=== PATIENT | male | born 1970 | race Two or more races ===

== ENCOUNTER 2020-08-20 17:05 | Outpatient (REF) | payer OTHER, SELFPAY | END 2020-08-20 17:06 | disposition home or self-care (01) | LOC: HO.LAB 17:05 | PROVIDERS: Visit Provider Internal Medicine | DX: Z20.828 Contact with and (suspected) exposure to other viral communicable diseases (principal) | CPT/HCPCS: C9803; U0003 ==

== ENCOUNTER 2020-12-24 10:43 | Emergency (ER) | payer OTHER, SELFPAY ==
--- NOTE | ~2020-12-24 | XR_ITS ---
EXAMINATION: XR ANKLE, LEFT XR ANKLE, RIGHT CLINICAL INFORMATION: Swelling, pain COMPARISON: None TECHNIQUE: 2 views left ankle, 2 views left foot, and mediolateral view of the combined ankle and foot are obtained for a total of 5 views. FINDINGS: There is ankle soft tissue swelling, greater on medial side. No visible fracture or dislocation. The ankle mortise is symmetric. The malleoli appear intact. There is no visible ankle capsular effusion. The subtalar joint is normal. The retrocalcaneal recess is preserved. There are posterior and plantar calcaneal spurs. The midfoot and forefoot show no fracture or dislocation. No erosive changes. No destructive process. XR/XR ankle LT min 3V IMPRESSION: 1. No fracture or dislocation. No destructive process or erosive arthropathy. 2. Posterior and plantar calcaneal spurs.
--- NOTE | ~2020-12-24 | XR_ITS ---
EXAMINATION: XR ANKLE, LEFT XR ANKLE, RIGHT CLINICAL INFORMATION: Swelling, pain COMPARISON: None TECHNIQUE: 2 views left ankle, 2 views left foot, and mediolateral view of the combined ankle and foot are obtained for a total of 5 views. FINDINGS: There is ankle soft tissue swelling, greater on medial side. No visible fracture or dislocation. The ankle mortise is symmetric. The malleoli appear intact. There is no visible ankle capsular effusion. The subtalar joint is normal. The retrocalcaneal recess is preserved. There are posterior and plantar calcaneal spurs. The midfoot and forefoot show no fracture or dislocation. No erosive changes. No destructive process. XR/XR foot LT 2V IMPRESSION: 1. No fracture or dislocation. No destructive process or erosive arthropathy. 2. Posterior and plantar calcaneal spurs.
--- NOTE | ~2020-12-24 | US_ITS ---
EXAMINATION: US VENOUS ULTRASOUND WITH DOPPLER LOWER EXTREMITY, LEFT CLINICAL INFORMATION: Lower extremity swelling. Assess for occult DVT. COMPARISON: Venous ultrasound lower extremities 05/09/2019, right lower extremity venous Doppler 04/08/2017. TECHNIQUE: Ultrasound of the deep veins is performed from the hip to the calf with compression sonography and color and pulse Doppler assessment. Spectral analysis with color-flow imaging is performed. FINDINGS: There is normal venous compression and respiratory variation and augmented flow. The visualized common femoral vein, superficial femoral vein, profunda femoral vein, popliteal vein, and the trifurcation region shows no evidence of deep venous thrombosis. The peroneal vein is only visible with color, otherwise unremarkable. There is no significant popliteal fossa cyst. US/US venous duplex LE LT IMPRESSION: No DVT demonstrated in the left lower extremity. If the patient's symptoms persist, followup ultrasound in 5 days 7 days might be of value to exclude proximal propagation from a non-visualized calf vein.
[2020-12-24 11:14] VITALS: BP 130/62; PULSE 76; RESP 18; TEMP 36.9; O2SAT 98; BMI 34.9
--- NOTE | 2020-12-24 12:09 | ED_ITS ---
HPI - Extremity Problem General Chief complaint: Extremity Problem <KRIS Alvarez Last Filed: 12/24/20 18:08> Stated complaint: L LEG SWELLING <KRIS Alvarez Last Filed: 12/24/20 18:08> Time Seen by Provider: 12/24/20 11:46 <KIRS Alvarez Last Filed: 12/24/20 18:08> Source: patient <KRIS Alvarez Last Filed: 12/24/20 18:08> Mode of arrival: ambulatory <KRIS Alvarez Last Filed: 12/24/20 18:08> Limitations: no limitations <KRIS Alvarez Last Filed: 12/24/20 18:08> History of Present Illness HPI Narrative: Patient presents to ED for left leg swelling for 1 week. Patient is status post JJ vaccine injection. Patient denies any trauma to right lower extremity. Patient denies any chest pain, shortness of breath, or passing out. Patient denies any recent trauma to lower extremity. <KRIS Alvarez Last Filed: 12/24/20 18:08> Related Data Allergies/Adverse reactions: Allergies Allergy/AdvReac Type Severity Reaction Status Date / Time No Known Allergies Allergy Verified 12/24/20 13:23 [No Known Allergies*] <KRIS Alvarez Last Filed: 12/24/20 18:08> Review of Systems Review of Systems: Yes all other systems are reviewed and are negative <KRIS Alvarez Last Filed: 12/24/20 18:08> Constitutional: Constitutional: Reports as per HPI and Reports no additional constitutional complaints <KRIS Alvarez Last Filed: 12/24/20 18:08> Eyes: Eyes: Reports as per HPI and Reports no additional eye complaints <KRIS Alvarez Last Filed: 12/24/20 18:08> ENT: Reports system reviewed and no additional complaints, except as documented and Reports as per HPI <KRIS Alvarez Last Filed: 12/24/20 18:08> Cardiovascular: Cardiovascular: Reports as per HPI and Reports no additional cardiovascular complaints <KRIS Alvarez Last Filed: 12/24/20 18:08> Respiratory: Respiratory: Reports as per HPI and Reports no additional respiratory complaints <KRIS Alvarez - Last Filed: 12/24/20 18:08> Gastrointestinal: Gastrointestinal: Reports as per HPI and Reports no additional gastrointestinal complaints <KRIS Alvarez - Last Filed: 12/24/20 18:08> Genitourinary: Genitourinary: Reports no additional male genitourinary complaints and Reports as per HPI <KRIS Alvarez - Last Filed: 12/24/20 18:08> Musculoskeletal: Musculoskeletal: Reports no additional musculoskeletal complaints and Reports as per HPI <KRIS Alvarez - Last Filed: 12/24/20 18:08> Comments: Lower extremity swelling <KRIS Alvarez - Last Filed: 12/24/20 18:08> Neurologic: Reports system reviewed and no additional complaints, except as documented and Reports as per HPI <KRIS Alvarez - Last Filed: 12/24/20 18:08> Psychiatric: Psychiatric: Reports no additional psychiatric complaints and Reports as per HPI <KRIS Alvarez - Last Filed: 12/24/20 18:08> FOR[facility]LY [facility], [facility] Past Medical History Medical History: Medical History (Updated 12/25/20 @ 00:01 by Gonzalo Puckett) Sleep apnea <KRIS Alvarez - Last Filed: 12/24/20 18:08> Social History Social History: Social History Alcohol intake: never <KRIS Alvarez - Last Filed: 12/24/20 18:08> Physical Exam Vital Signs: Vital Signs: Last Vital Signs Temp 98.5 F 12/24/20 11:14 Pulse 76 12/24/20 11:14 Resp 18 12/24/20 11:14 BP 130/62 12/24/20 11:14 Pulse Ox 98 12/24/20 11:14 Body Mass Index 34.9 <KRIS Alvarez - Last Filed: 12/24/20 18:08> Vital Signs: Last Vital Signs Temp 98.5 F 12/24/20 11:14 Pulse 76 12/24/20 11:14 Resp 18 12/24/20 11:14 BP 130/62 12/24/20 11:14 Pulse Ox 98 12/24/20 11:14 Body Mass Index 34.9 <Lenny Savage MD - Last Filed: 01/01/21 17:05> Const: General: cooperative, healthy appearing, comfortable, no acute distress, well developed, alert and awake; No Physically active <KRIS Alvarez Last Filed: 12/24/20 18:08> Orientation/consciousness: patient oriented x3 <KRIS Alvarez Last Filed: 12/24/20 18:08> HENMT: Head: Yes normal to inspection, Yes No palpable skull fracture present, Yes normocephalic, No atraumatic, No Lara's sign, No contusion, No cranial bruits, No hematoma, No laceration, No occipital foramen tenderness, No palpable skull fracture, No raccoon eyes, No scalp lesion, No scalp tenderness, No Temporal artery tenderness present and No periorbital ecchymosis <KRIS Alvarez Last Filed: 12/24/20 18:08> Eyes: General: appearance normal, both eyes and all related structures <KRIS Alvarez Last Filed: 12/24/20 18:08> Neck: Neck: Yes normal visual inspection, Yes full ROM, Yes no lymphadenopathy, Yes no meningeal signs, Yes trachea midline, Yes supple and No tender <KRIS Alvarez Last Filed: 12/24/20 18:08> Chest: Chest palpation & inspection: normal inspection of the chest and normal palpation of entire chest wall <KRIS Alvarez Last Filed: 12/24/20 18:08> Resp: Effort & Inspection: normal respiratory effort and able to speak in complete sentences <KRIS Alvarez Last Filed: 12/24/20 18:08> Auscultation: clear to auscultation bilaterally <KRIS Alvarez Last Filed: 12/24/20 18:08> Cardio: Jugular venous distension: no JVD <KRIS Alvarez Last Filed: 12/24/20 18:08> Heart sounds: S1 normal heart sound present and S2 normal heart sound present <KRSI Alvarez Last Filed: 12/24/20 18:08> GI: Inspection: Yes normal to inspection and No abdominal wall ecchymosis <KIRS Alvarez Last Filed: 12/24/20 18:08> Palpation (GI): Soft to palpation, not firm, nontender, no guarding and not r igid <KRIS Alvarez - Last Filed: 12/24/20 18:08> : General: No CVA tenderness and Yes no CVA tenderness <KRIS Alvarez Last Filed: 12/24/20 18:08> Back/Spine/Pelvis: Back: no CVA tenderness, No CVA tenderness and No back tenderness <KRIS Alvarez - Last Filed: 12/24/20 18:08> Skin: General skin exam: no rashes or lesions noted and elasticity normal <KRIS Alvarez - Last Filed: 12/24/20 18:08> Neuro: General: patient oriented x3, no meningeal signs and CN's II-XI intact bilaterally <KRIS Alvarez Last Filed: 12/24/20 18:08> Cranial nerves: Yes CN's II-XII intact bilaterally <KRIS Alvarez - Last Filed: 12/24/20 18:08> Extrem: Other: Left lower extremity: Positive for lower leg/ankle/foot swelling. Negative for any redness, or calf tenderness. Negative for ecchymosis. Negative for any tenderness. Pulses intact. Motor/neuro exam intact. Right lower extremity: Normal. Motor/neuro/vascular exam intact <KRIS Alvarez - Last Filed: 12/24/20 18:08> General: Yes normal to inspection and Yes full ROM <KRIS Alvarez - Last Filed: 12/24/20 18:08> Psych: Appearance: grossly normal, well kempt and not disheveled <KRIS Alvarez - Last Filed: 12/24/20 18:08> Course Course Course Narrative: Patient will be sent for ultrasound to rule out blood clot due to recent GJ vaccine. <KRIS Alvarez - Last Filed: 12/24/20 18:08> I have reviewed the chart <Lenny Savage MD - Last Filed: 01/01/21 17:05> Reevaluation(s) Reevaluation #1: Lower extremity x-ray negative for any fractures. Lower extremity ultrasound negative for blood clot. Patient informed to follow-up with PCP. <KRIS Alvarez - Last Filed: 12/24/20 18:08> MDM - Extremity (Nontraumatic) MDM Narrative Medical decision making narrative: Lower extremity swelling. <KRIS Alvarez Last Filed: 12/24/20 18:08> Discharge Plan Discharge Clinical Impression: Lower extremity edema <KRIS Alvarez Last Filed: 12/24/20 18:08> Patient Disposition: Home, Self-Care <KRIS Alvarez Last Filed: 12/24/20 18:08> Instructions: Leg Edema (ED) <KRIS Alvarez Last Filed: 12/24/20 18:08> Additional Instructions: Regrese al servicio de urgencias por cualquier enrojecimiento de las extremidades inferiores, aumento de la hinchaz?n, dolor en la pantorrilla, dolor en el pecho, dificultad para respirar, decoloraci?n azulada de las extremidades, frialdad de las extremidades, fiebre, escalofr?os o cualquier otro s?ntoma preocupante. La ecograf?a de joseph extremidad inferior result? negativa para TVP. Las radiograf?as dieron negativo por fractura. Nataliya un seguimiento con joseph PCP <KRIS Alvarez - Last Filed: 12/24/20 18:08> Interventions: ED Discharge Assessment Last Done: 12/24/20 13:58 <KRIS Alvarez Last Filed: 12/24/20 18:08> Discharge Date/Time: 12/24/20 13:59 <KRIS Alvarez - Last Filed: 12/24/20 18:08> Print Language: Kazakh <KRIS Alvarez Last Filed: 12/24/20 18:08>
== END 2020-12-24 13:59 | disposition home or self-care (01) ==
PROVIDERS: Emergency Provider Emergency Medicine
DX: R60.0 Localized edema (principal)
CPT/HCPCS: 73610; 73620; 93971; 99284

== ENCOUNTER 2020-12-30 11:57 | Outpatient (REF) | payer OTHER, SELFPAY ==
[2020-12-30 13:08] LABS: COVID-19 Test Negative (Negative); IDNOW Serial# 55D5AD1C
== END 2020-12-30 11:58 | disposition home or self-care (01) ==
LOC: HO.LAB 11:57
PROVIDERS: Visit Provider Internal Medicine
DX: Z20.822 Contact with and (suspected) exposure to COVID-19 (principal)
CPT/HCPCS: 36415; 87635; C9803

== ENCOUNTER 2021-09-01 11:23 | Outpatient (REF) | payer OTHER, SELFPAY | END 2021-09-01 11:24 | disposition home or self-care (01) | LOC: HO.LAB 11:23 | PROVIDERS: Visit Provider Internal Medicine | DX: Z20.822 Contact with and (suspected) exposure to COVID-19 (principal) | CPT/HCPCS: C9803; U0003; U0005 ==

== ENCOUNTER 2021-10-28 08:38 | Day surgery (SDC) | payer OTHER, SELFPAY ==
--- NOTE | 2021-10-24 13:04 | HO.ANESPROP2 ---
Documented by User: Patience Andujar NP 10/24/21 13:05 HPI - Anesthesia Eval Consult details Narrative: 51yo M for Colonoscopy [facility] Past Medical History Medical History JULIO on CPAP Surgical History Surgical History History of circumcision Social History Social History Alcohol intake: never Advance Directives: No Advance Directives Information Provided: No Meds Allergies Allergy/AdvReac Type Severity Reaction Status Date / Time No Known Allergies Allergy Verified 10/20/21 15:27 [No Known Allergies*] Exam Exam Date and Time: October 24, 2021 1304 Assessment and Plan Assessment Anesthesia Assessment: Chart Reviewed Documented by User: Shari Castanon MD 10/28/21 08:56 [facility] Past Medical History Medical History JULIO on CPAP Functional capacity: independent ambulation Family History Family history of problems with anesthesia: No Surgical History Surgical History History of circumcision History of Problems with Anesthesia: No Social History Social History Alcohol intake: never Advance Directives: No Advance Directives Information Provided: No Meds Allergies Allergy/AdvReac Type Severity Reaction Status Date / Time No Known Allergies Allergy Verified 10/20/21 15:27 [No Known Allergies*] Exam Airway Mallampati Class: II TM Dist: >3cm Neck ROM: Full Heart: RRR Lungs: CTA Assessment and Plan Final Anesthetic Review Family History of Problems with Anesthesia: No History of Problems with Anesthesia: No Final Preanesthetic Review: No Changes in Pt Med Stat, Meds/Allgs Chart Reviewed, Consent Obtained/Reviewed and Anes Risks/Benef Reviewed Patient Risk: Low Procedure Risk: Low Anesthetic Plan Anesthetic Plan: MAC: Disposition: Standard PACU
[2021-10-28 08:57] VITALS: BMI 35.7
[2021-10-28 09:04] VITALS: BP 136/74; PULSE 85; RESP 16; TEMP 36.6; O2SAT 97
[2021-10-28] MEDS: Lactated Ringers 1,000 ML 100 ML IVCONT (09:16)
--- NOTE | 2021-10-28 09:45 | MHC.SHP ---
Pre-Procedural Eval Section A Date of Service: 10/28/21 The patient is an INPATIENT: No Changes since office visit: No Cold of Flu in the past 2 weeks, No New Medical Problems, No Changes in Medication and No Patient answered all questions The History & Physical has been completed within 30 days and I have reviewed it.: Yes Section B Chief Complaint: screening Allergies: Allergies Allergy/AdvReac Type Severity Reaction Status Date / Time No Known Allergies Allergy Verified 10/20/21 15:27 [No Known Allergies*] Plan I have reviewed the history and physical and performed a pertinent physical examination on my patient. No changes have occurred unless specified.
--- NOTE | 2021-10-28 10:08 | PM.OP ---
Brief Operative Note Date of Service: 10/28/21 Pre-op diagnosis: screening Post-op diagnosis: same (normal) Procedure: colonoscopy Surgeon: Marquise Kaufman Anesthesia: MAC Was an Supervisor Show Operations used for this Procedure?: No Estimated blood loss (mL): 0 Pathology: none sent Condition: stable Disposition: PACU
[2021-10-28 10:12] VITALS: BP 104/58; PULSE 91; RESP 16; TEMP 37; O2SAT 96
[2021-10-28 10:27] VITALS: BP 120/77; PULSE 79; RESP 16; TEMP 37; O2SAT 97
--- NOTE | 2021-10-28 11:19 | OP_ITS ---
SURGEON: Marquise Kaufman MD INDICATIONS: Colon cancer screening. PREOPERATIVE DIAGNOSIS: POSTOPERATIVE DIAGNOSIS: PROCEDURE PERFORMED: Colonoscopy to the terminal ileum. ESTIMATED BLOOD LOSS: COMPLICATIONS: ANESTHESIA: Monitored anesthesia care. ASSISTANTS: SPECIMENS: DESCRIPTION OF PROCEDURE: History and physical were performed. The risks and benefits of the procedure were explained to the patient. Informed consent was obtained. The patient was placed in the left lateral decubitus position. A digital rectal exam was performed and was found to be normal. The Olympus pediatric video colonoscope was introduced into the rectum and advanced to the cecum without difficulty. The cecum was identified by transillumination, palpation, and identification of the ileocecal valve. Examination was performed. The scope was removed. He tolerated the procedure well and was returned to the recovery area in stable condition. FINDINGS: The terminal ileum was normal. The visualized colonic mucosa was within normal limits without evidence of masses or ulcers. The quality of the prep was good. No polyps were identified. There were small internal hemorrhoids on retroflexed examination. IMPRESSION: Normal colonoscopy. RECOMMENDATION: 1. Follow up as needed. 2. Repeat colonoscopy is recommended in 10 years for average risk individuals. MD RICHARD Umaña/KAYE / [id number]
--- NOTE | 2021-10-28 14:04 | HO.POSTANES ---
Post Anesthesia Evaluation Post Anesthesia Evaluation Vital Signs: Vital Signs Temp Pulse Resp BP Pulse Ox 10/28/21 10:27 98.6 F 79 16 120/77 97 10/28/21 10:12 98.6 F 91 16 104/58 L 96 10/28/21 09:04 97.8 F 85 16 136/74 97 Anesthesia: Monitored Mental Status: Awake Pain Control: Satisfactory Nausea/Vomiting: None Hydration: Adequate Anesthesia-Related Issues: No Anes. Related Issues
== END 2021-10-28 11:04 | disposition home or self-care (01) ==
PROVIDERS: Visit Provider Internal Medicine Gastroenterology
PROC: 0DJD8ZZ Inspection of Lower Intestinal Tract, Via Natural or Artificial Opening Endoscopic (ICD-10-PCS; CPT 45378; principal; 2021-10-28 10:00)
DX: Z12.11 Encounter for screening for malignant neoplasm of colon (principal); G47.33 Obstructive sleep apnea (adult) (pediatric); Z99.89 Dependence on other enabling machines and devices
CPT/HCPCS: 45378

== ENCOUNTER 2022-01-13 15:11 | Inpatient (IN) | payer OTHER, SELFPAY ==
[2022-01-13] VITALS (7 sets, daily range): BP systolic 109–122; BP diastolic 54–68; PULSE 73–120; RESP 16–22; TEMP 36.7–38.6; O2SAT 97–99; BMI 35.7
--- NOTE | 2022-01-13 | ECG_ITS ---
Test Reason : TACHY/INFECTION? Blood Pressure : / mmHG Vent. Rate : 110 BPM Atrial Rate : 110 BPM P-R Int : 146 ms QRS Dur : 098 ms QT Int : 328 ms P-R-T Axes : 054 -40 028 degrees QTc Int : 443 ms Sinus tachycardia Left axis deviation Incomplete right bundle branch block Abnormal ECG No previous ECGs available Referred By: Generic ED Physician Electronically Signed By:PETRA SCHMIDT MD
--- NOTE | ~2022-01-13 | US_ITS ---
EXAMINATION: US VENOUS ULTRASOUND WITH DOPPLER LOWER EXTREMITY, LEFT CLINICAL INFORMATION: Left leg cellulitis, rule out DVT. COMPARISON: None TECHNIQUE: Ultrasound of the deep veins is performed from the hip to the calf with compression sonography and color and pulse Doppler assessment. Spectral analysis with color-flow imaging is performed. FINDINGS: There is normal venous compression and respiratory variation and augmented flow. The visualized common femoral vein, superficial femoral vein, profunda femoral vein, popliteal vein, and the trifurcation region shows no evidence of deep venous thrombosis. No left popliteal cyst. Enlarged left inguinal lymph node measuring 4.3 cm in long axis with thin cortex. If the patient's symptoms persist, followup ultrasound in 5 days 7 days might be of value to exclude proximal propagation from a non-visualized calf vein. US/US venous duplex LE IMPRESSION: 1. No evidence for deep venous thrombosis in the left lower extremity. 2. Enlarged left inguinal lymph node is nonspecific, but does not appear pathologic and could be reactive, possibly chronic.
--- NOTE | ~2022-01-13 | US_ITS ---
EXAMINATION: US ABDOMEN LIMITED CLINICAL INFORMATION: Transaminitis. COMPARISON: Ultrasound abdomen complete 04/08/2017. TECHNIQUE: Real-time imaging of the right upper quadrant abdominal viscera. FINDINGS: PANCREAS: Normal. No mass or abnormal inflammatory change. LIVER: Normal. The liver is normal in size. The liver contour is normal. Parenchymal echogenicity is normal. No focal hepatic lesion. There is no intrahepatic biliary duct dilatation seen. GALLBLADDER: Normal. The gallbladder is physiologically distended without evidence of stones, sludge, polyps, wall thickening or pericholecystic fluid. COMMON BILE DUCT: Normal in caliber measuring 0.3 cm in diameter. RIGHT KIDNEY: There is mild rotation present with extrarenal pelvis. No hydronephrosis. No renal calculi or focal parenchymal lesions. The kidney measures 13.7 cm in maximum dimension. FREE FLUID: None. US/US abdomen limited IMPRESSION: No significant abnormality identified.
--- NOTE | ~2022-01-13 | XR_ITS ---
EXAMINATION: XR TIBIA AND FIBULA, LEFT CLINICAL INFORMATION: Left leg cellulitis, rule out subcutaneous air. COMPARISON: None TECHNIQUE: AP and lateral views of the left tibia and fibula were obtained. FINDINGS: Mild soft tissue swelling is seen without subcutaneous air. The tibia and fibula are intact. The joint spaces are unremarkable. XR/XR tibia fibula LT 2V IMPRESSION: Mild soft tissue swelling without subcutaneous air or overt osseous abnormality. .
--- NOTE | 2022-01-13 15:20 | PC.NURSE ---
Triage complete- charge account authorizer and md notified of possible sepsis.
[2022-01-13] MEDS: Acetaminophen 325 MG TABLET 650 MG PO (15:27)
[2022-01-13 15:53] LABS: MANUAL DIFF FLAG NO
[2022-01-13 15:58] LABS: Basophils Percent Auto 0.2 % (0-2); Hematocrit 39.8 % (42.0-52.0); Imm Gran Abs Auto 0.09 X10*3/uL (0.00-0.03); Imm Gran Pct Auto 0.6 % (0.0-0.4); Lymphocytes Absolute Auto 0.8 X10*3/uL (1.2-4.9); Lymphocytes Percent Auto 5.2 % (20-40); Mean Corpuscular HGB Conc 32.7 g/dl (31.0-36.0); Mean Corpuscular Volume 82.6 fL (80.0-98.0); Monocytes Absolute Auto 0.8 X10*3/uL (0.1-1.2); Monocytes Percent Auto 4.9 % (2-11); Neutrophils Absolute Auto 14.3 x10*3/uL (2.0-8.3); Neutrophils Percent Auto 89.1 % (45-73); Platelet Count 200 X10*3/uL (160-400); Red Blood Count 4.82 X10*6/uL (4.60-5.80); Red Cell Distribution Width 14.1 % (11.0-16.0); White Blood Count 16.1 X10*3/uL (4.8-10.8)
[2022-01-13 16:01] LABS: Appearance Urine CLEAR; Color Urine DK YELLOW; Glucose Urine UA NEG (NEG); Leukocyte Esterase Urine NEG (NEG); Nitrite Urine NEG (NEG); PH 5.5 (5.0-8.0); Specific Gravity - Urine 1.025 (1.005-1.025); UACC Culture Trigger NO; Urine Blood 2+ (NEG); Urine Ketones 15 MG/DL (NEG); Urine Protein TRACE MG/DL (NEG-TRACE)
[2022-01-13 16:10] LABS: Alanine Aminotransferase 86 U/L (0-40); Albumin Level 3.9 g/dL (3.5-5.0); Alkaline Phosphatase 96 U/L (39-117); Anion Gap 13 (12-20); Aspartate Amino Transferase 65 U/L (5-37); Bilirubin Direct 0.6 mg/dL (0.0-0.5); Blood Urea Nitrogen 17 mg/dL (9-16); Calcium 8.6 mg/dL (8.4-10.2); Carbon Dioxide 21 mmol/L (22-29); Chloride 105 mmol/L (96-108); Creatinine Clr Calc Pharmacy 89.3; Estimated Glomerular Filt Rate > 60; Glucose Random 170 mg/dL (60-115); Lipase 10 U/L (8-78); Potassium 3.5 mmol/L (3.3-5.1); Sodium 135 mmol/L (135-145); Total Protein 6.9 g/dL (6.5-8.0)
--- NOTE | 2022-01-13 16:21 | ED.SKABFB ---
HPI - Skin/Abscess/Foreign Bdy General Chief complaint: Skin/Abscess/Foreign Body Stated complaint: L leg swollen/fever Time Seen by Provider: 01/13/22 16:18 Source: patient Mode of arrival: ambulatory Limitations: no limitations History of Present Illness HPI narrative: 51-year-old male came in for evaluation of left lower extremities swelling and redness and fever since yesterday. Patient reported fever since last night, left lower extremity swelling tenderness and redness, declined any trauma, no history of insect bite, patient had similar history in the right leg x3. No history of DVT, no history of recent travel or prolonged immobilization. Related Data Allergies Allergy/AdvReac Type Severity Reaction Status Date / Time No Known Allergies Allergy Verified 10/20/21 15:27 [No Known Allergies*] Review of Systems Review of Systems: All other systems are reviewed and are negative Constitutional: Reports as per HPI and Reports no additional constitutional complaints Eyes: Reports as per HPI and Reports no additional eye complaints Reports system reviewed and no additional complaints, except as documented Cardiovascular: Reports as per HPI and Reports no additional cardiovascular complaints Respiratory: Reports as per HPI and Reports no additional respiratory complaints Gastrointestinal: Reports as per HPI and Reports no additional gastrointestinal complaints Genitourinary: Reports no additional female genitourinary complaints Musculoskeletal: Reports no additional musculoskeletal complaints Skin/Breast: Reports system reviewed and no additional complaints, except as docu Psychiatric: Reports no additional psychiatric complaints Endocrine: Reports no additional endocrine complaints Hematologic/Lymphatic: Reports no additional hematologic/lymphatic complaints Allergic/Immunologic: Reports no additional allergic/immunologic complaints Reports system reviewed and no additional complaints, except as documented and Reports Abnormal speech present [facility] Past Medical History Medical History JULIO on CPAP Surgical History History of circumcision Social History Social History Alcohol intake: never Patient Tobacco Use Status: Never used Tobacco Advance Directives: No Advance Directives Information Provided: No Physical Exam Vital Signs: Vital Signs: Last Vital Signs Temp 99.0 F 01/13/22 16:39 Pulse 83 01/13/22 17:52 Resp 18 01/13/22 17:52 BP 109/57 L 01/13/22 17:52 Pulse Ox 99 01/13/22 17:52 BMI result Body Mass Index 35.7 Vital signs have been reviewed as appeared to be correct. Blood pressure normal. Heart rate elevated. Respiration rate normal. Temperature elevated. Oxygen saturation normal. Appearance: Alert. Oriented X3. No acute distress. Head: Normal external exam. Normocephalic. Atraumatic. No Lara signs noted. No raccoon eyes noted Eyes: PERRLA. EOMI. Conjunctiva and sclera normal. Eyelids normal. ENT: TM's Normal. Pharynx normal. Uvula midline. Moist mucous membranes. No trismus noted. No drooling noted. No muffled voice noted. Neck: Normal inspection. Neck supple. FROM. No adenopathy. Thyroid Normal. No meningeal signs. No neck mass noted. CVS: Normal heart rate and rhythm. Heart sound normal. No murmurs noted. Pulses normal throughout. Respiratory: No respiratory distress. Painless inspiration. Breath sounds normal. No wheezes/rales/rhonchi noted. Chest nontender. No accessory muscle usage noted or decreased air movement noted. Abdomen: Soft and nontender. Bowel sounds normal in all 4 quadrants. No distention noted. No organomegaly noted. No visible injury noted. Back: No CVA tenderness. Full range of motion noted. Skin: Skin warm and dry. Normal skin color. Normal skin turgor. No rashes/lesions/lacerations noted. Extremities: Left lower extremity with redness, hotness, tenderness. Neurovascular intact with good sensory and motor exam was intact left PT/DP/popliteal pulsation. Neuro: Oriented X 3. Cranial nerve exam: II-XII are grossly intact No motor deficit. No sensory deficit. Reflexes normal. Course Course Course Narrative: Assessment and plan. 51-year-old male with left leg cellulitis patient meet criteria for SIRS but no severe sepsis or septic shock, no DVT, no free SQ air to indicate an anaerobic infection. Will admit the patient for IV fluids/antibiotic. MDM - Skin/Abscess/Foreign Bdy Medical Records Attestation: I reviewed the patient's medical records. Lab Data Attestation: I reviewed the patient's lab results. Result diagrams: 01/13/22 15:46 01/13/22 15:46 Labs: Lab Results 05/06/2701/13/22 01/13/22 Range/Units 15:46 15:46 15:46 WBC 16.1 H (4.8-10.8) X10*3/uL RBC 4.82 (4.60-5.80) X10*6/uL Hgb 13.0 L (14.0-18.0) g/dl Hct 39.8 L (42.0-52.0) % MCV 82.6 (80.0-98.0) fL MCH 27.0 (27.0-33.0) pg MCHC 32.7 (31.0-36.0) g/dl RDW 14.1 (11.0-16.0) % Plt Count 200 (160-400) X10*3/uL MPV 11.0 (9.4-12.4) fL Immature Gran % (Auto) 0.6 H (0.0-0.4) % Neut % (Auto) 89.1 H (45-73) % Lymph % (Auto) 5.2 L (20-40) % [place] % (Auto) 4.9 (2-11) % Eos % (Auto) 0.0 (0-4) % Baso % (Auto) 0.2 (0-2) % Lymph # (Auto) 0.8 L (1.2-4.9) X10*3/uL [place] # (Auto) 0.8 (0.1-1.2) X10*3/uL Eos # (Auto) 0.0 (0.0-0.4) X10*3/uL Baso # (Auto) 0.0 (0.0-0.2) X10*3/uL Abs Immat Gran (auto) 0.09 H (0.00-0.03) X10*3/uL Absolute Neuts (auto) 14.3 H (2.0-8.3) x10*3/uL Absolute Nucleated RBC 0.000 (0.0-0.012) X10*3/uL Nucleated RBC % (auto) 0.0 (0.0-0.2) /100WBC Sodium 135 (135-145) mmol/L Potassium 3.5 (3.3-5.1) mmol/L Chloride 105 (96-108) mmol/L Carbon Dioxide 21 L (22-29) mmol/L Anion Gap 13 (12-20) BUN 17 H (9-16) mg/dL Creatinine 1.17 (0.5-1.4) mg/dL Estim Creat Clear Calc 89.3 Estimated GFR > 60 Random Glucose 170 H (60-115) mg/dL Lactic Acid (0.5-2.0) mmol/L Calcium 8.6 (8.4-10.2) mg/dL Total Bilirubin 1.0 (0.0-1.0) mg/dL Direct Bilirubin 0.6 H (0.0-0.5) mg/dL AST 65 H (5-37) U/L ALT 86 H (0-40) U/L Alkaline Phosphatase 96 (39-117) U/L Total Protein 6.9 (6.5-8.0) g/dL Albumin 3.9 (3.5-5.0) g/dL Lipase 10 (8-78) U/L Urine Color DK YELLOW Urine Appearance CLEAR Urine pH 5.5 (5.0-8.0) Ur Specific [place] 1.025 (1.005-1.025) Urine Protein TRACE (NEG-TRACE) MG/DL Urine Glucose (UA) NEG (NEG) MG/DL Urine Ketones 15 (NEG) MG/DL Urine Blood 2+ H (NEG) Urine Nitrite NEG (NEG) Ur Leukocyte Esterase NEG (NEG) Urine RBC 5-9 H (0) /HPF Urine WBC 0 (0-4) /HPF Ur Squamous Epith Cells TRACE /LPF Urine Bacteria NONE /LPF Urine Mucus TRACE /LPF 01/13/22 Range/Units 18:00 WBC (4.8-10.8) X10*3/uL RBC (4.60-5.80) X10*6/uL Hgb (14.0-18.0) g/dl Hct (42.0-52.0) % MCV (80.0-98.0) fL MCH (27.0-33.0) pg MCHC (31.0-36.0) g/dl RDW (11.0-16.0) % Plt Count (160-400) X10*3/uL MPV (9.4-12.4) fL Immature Gran % (Auto) (0.0-0.4) % Neut % (Auto) (45-73) % Lymph % (Auto) (20-40) % [place] % (Auto) (2-11) % Eos % (Auto) (0-4) % Baso % (Auto) (0-2) % Lymph # (Auto) (1.2-4.9) X10*3/uL [place] # (Auto) (0.1-1.2) X10*3/uL Eos # (Auto) (0.0-0.4) X10*3/uL Baso # (Auto) (0.0-0.2) X10*3/uL Abs Immat Gran (auto) (0.00-0.03) X10*3/uL Absolute Neuts (auto) (2.0-8.3) x10*3/uL Absolute Nucleated RBC (0.0-0.012) X10*3/uL Nucleated RBC % (auto) (0.0-0.2) /100WBC Sodium (135-145) mmol/L Potassium (3.3-5.1) mmol/L Chloride (96-108) mmol/L Carbon Dioxide (22-29) mmol/L Anion Gap (12-20) BUN (9-16) mg/dL Creatinine (0.5-1.4) mg/dL Estim Creat Clear Calc Estimated GFR Random Glucose (60-115) mg/dL Lactic Acid 1.0 (0.5-2.0) mmol/L Calcium (8.4-10.2) mg/dL Total Bilirubin (0.0-1.0) mg/dL Direct Bilirubin (0.0-0.5) mg/dL AST (5-37) U/L ALT (0-40) U/L Alkaline Phosphatase (39-117) U/L Total Protein (6.5-8.0) g/dL Albumin (3.5-5.0) g/dL Lipase (8-78) U/L Urine Color Urine Appearance Urine pH (5.0-8.0) Ur Specific [place] (1.005-1.025) Urine Protein (NEG-TRACE) MG/DL Urine Glucose (UA) (NEG) MG/DL Urine Ketones (NEG) MG/DL Urine Blood (NEG) Urine Nitrite (NEG) Ur Leukocyte Esterase (NEG) Urine RBC (0) /HPF Urine WBC (0-4) /HPF Ur Squamous Epith Cells /LPF Urine Bacteria /LPF Urine Mucus /LPF Imaging Data Left leg x-ray: Attestation: I personally reviewed and interpreted this imaging study as follows: Radiologist's impression: Mild soft tissue swelling without subcutaneous air or overt osseous abnormality. Left leg venous ultrasound: Attestation: I personally reviewed and interpreted this imaging study as follows: Radiologist's impression: 1. No evidence for deep venous thrombosis in the left lower extremity. 2. Enlarged left inguinal lymph node is nonspecific, but does not appear pathologic and could be reactive, possibly chronic. Discharge Plan Discharge Clinical Impression: Cellulitis of left leg Patient Disposition: Admitted As Inpatient
[2022-01-13 16:28] LABS: Mucus Urine TRACE /LPF; Squamous Epithelial Cell Urine TRACE /LPF; WBC Urine 0 /HPF (0-4)
[2022-01-13] MEDS: Piperacillin Sodium/Tazobactam 3.375 GM in 0.9 % Sodium Chloride 50 ML IV (16:35)
[2022-01-13] MEDS: 0.9 % Sodium Chloride 2,052 ML 2052 ML IV (16:35)
[2022-01-13] MEDS: vancomycin HCL 1,250 MG in 0.9 % Sodium Chloride 250 ML 166.67 MG IV (17:38)
--- NOTE | 2022-01-13 18:58 | PHA.MEDREC ---
Pharmacy Consult ? Medication Reconciliation Pharmacy has completed the medication reconciliation. No known home medications
[2022-01-13 19:39] LABS: COVID-19 Test Negative (Negative)
--- NOTE | 2022-01-13 23:44 | PM.IMHP ---
History of Present Illness Date of Service: 01/13/22 Chief Complaint: Left leg pain redness and swelling 51-year-old male with a past medical history of obesity, prior history of cellulitis of the right lower extremity; presented to the hospital today with a chief complaint of left leg pain redness and swelling. Patient reports that he had fever yesterday and today he noted to have pain redness and swelling developed in the left leg; given above symptoms presented to the ER for further evaluation. Denies any trauma or injury. Denies any scratching of the leg. Denies any cough or sputum production. Denies any GI symptoms. Denies any chest pain palpitations lightheadedness or dizziness. Review of all other systems is negative except mentioned above ER course: Per ER team patient noted to have mild leukocytosis; left leg findings concerning for cellulitis; venous duplex was negative. Given IV vancomycin and Zosyn. Admitted to the hospital for further management. [facility] Medical History JULIO on CPAP Pertinent family history: Mother has diabetes. Father has high blood pressure Surgical History History of circumcision Social History Alcohol intake: never Patient Tobacco Use Status: Never used Tobacco Advance Directives: No Advance Directives Information Provided: No Meds Allergies Allergy/AdvReac Type Severity Reaction Status Date / Time No Known Allergies Allergy Verified 10/20/21 15:27 [No Known Allergies*] Active Medications: Current Medications Pharmacy Consult (Consult Rx Perform Med Rec) 1 each MISCELLANE ONCE PRN PRN Reason: Consult order Home Medications Medication Instructions Recorded Confirmed Last Taken Type No Known Home Meds 01/13/22 01/13/22 Unknown History Physical Exam Vital Signs and Narrative: Vital Signs: Last Vital Signs Temp 98.3 F 01/13/22 22:42 Pulse 73 01/13/22 22:42 Resp 18 01/13/22 22:42 BP 122/63 01/13/22 22:42 Pulse Ox 97 01/13/22 22:42 BMI result Body Mass Index 35.7 Gen: Appears be in no acute distress HEENT: NCAT, Moist mucosa. Pulmonary: Vesicular breath sounds, fair air entry CVS: Normal S1-S2 Abdomen: BS+, Soft, Nontender Extremities: Warm well perfused; noted to have left leg pain tenderness and erythema; circumferential; Neuro: Alert and awake. Results Labs CBC and Chem 7: 01/13/22 15:46 01/13/22 15:46 Labs: Laboratory Results - last 24 hr 01/13/22 01/13/22 01/13/22 15:46 15:46 15:46 MCV 82.6 MCH 27.0 MCHC 32.7 RDW 14.1 Plt Count 200 MPV 11.0 Immature Gran % (Auto) 0.6 H Neut % (Auto) 89.1 H Lymph % (Auto) 5.2 L [place] % (Auto) 4.9 Eos % (Auto) 0.0 Baso % (Auto) 0.2 Lymph # (Auto) 0.8 L [place] # (Auto) 0.8 Eos # (Auto) 0.0 Baso # (Auto) 0.0 Abs Immat Gran (auto) 0.09 H Absolute Neuts (auto) 14.3 H Absolute Nucleated RBC 0.000 Nucleated RBC % (auto) 0.0 Anion Gap 13 Estim Creat Clear Calc 89.3 Estimated GFR > 60 Random Glucose 170 H Lactic Acid Calcium 8.6 Total Bilirubin 1.0 Direct Bilirubin 0.6 H AST 65 H ALT 86 H Alkaline Phosphatase 96 Total Protein 6.9 Albumin 3.9 Lipase 10 Urine Color DK YELLOW Urine Appearance CLEAR Urine pH 5.5 Ur Specific [place] 1.025 Urine Protein TRACE Urine Glucose (UA) NEG Urine Ketones 15 Urine Blood 2+ H Urine Nitrite NEG Ur Leukocyte Esterase NEG Urine RBC 5-9 H Urine WBC 0 Ur Squamous Epith Cells TRACE Urine Bacteria NONE Urine Mucus TRACE COVID-19 (JONATHAN) COVID-19 Clin Com 01/13/22 01/13/22 18:00 19:14 MCV MCH MCHC RDW Plt Count MPV Immature Gran % (Auto) Neut % (Auto) Lymph % (Auto) [place] % (Auto) Eos % (Auto) Baso % (Auto) Lymph # (Auto) [place] # (Auto) Eos # (Auto) Baso # (Auto) Abs Immat Gran (auto) Absolute Neuts (auto) Absolute Nucleated RBC Nucleated RBC % (auto) Anion Gap Estim Creat Clear Calc Estimated GFR Random Glucose Lactic Acid 1.0 Calcium Total Bilirubin Direct Bilirubin AST ALT Alkaline Phosphatase Total Protein Albumin Lipase Urine Color Urine Appearance Urine pH Ur Specific [place] Urine Protein Urine Glucose (UA) Urine Ketones Urine Blood Urine Nitrite Ur Leukocyte Esterase Urine RBC Urine WBC Ur Squamous Epith Cells Urine Bacteria Urine Mucus COVID-19 (JONATHAN) Negative COVID-19 Clin Com See Note Imaging Radiologist's Impressions: Impressions Venous Duplex 01/13/22 16:47 IMPRESSION: 1. No evidence for deep venous thrombosis in the left lower extremity. 2. Enlarged left inguinal lymph node is nonspecific, but does not appear pathologic and could be reactive, possibly chronic. Tibia/Fibula X-Ray 01/13/22 17:04 IMPRESSION: Mild soft tissue swelling without subcutaneous air or overt osseous abnormality. . Assessment and Plan (1) Cellulitis of left leg: Status: Acute Plan 51-year-old male with a past medical history of obesity, prior history of cellulitis presented to the hospital with a chief complaint of left leg pain redness and swelling. Noted to have cellulitis. Admitted for further management. Left leg cellulitis: No evidence of open wound or discharge noted. No fluctuance. Venous duplex negative for DVT Continue IV vancomycin and Zosyn Mild transaminitis: Unclear etiology. Will obtain acute hepatitis panel and right upper quadrant ultrasound. Trend liver enzymes. DVT prophylaxis: Lovenox Code status: Full code Quality Stroke Does the patient have a stroke diagnosis?: No VTE Prior VTE?: No VTE Risk Level:: Medical - moderate - high VTE Device Contraindication: Treatment Not Indicated VTE Drug Contraindication: N/A - Med Ordered
[2022-01-14] VITALS (8 sets, daily range): BP systolic 118–140; BP diastolic 54–77; PULSE 83–99; RESP 14–20; TEMP 36.4–38.1; O2SAT 96–99; BMI 35.6
[2022-01-14] MEDS: Enoxaparin Sodium 40 MG/0.4 ML SYRINGE SUBCUT ×2 (01:02→23:26)
[2022-01-14] MEDS: Piperacillin Sodium/Tazobactam 3.375 GM in 0.9 % Sodium Chloride 50 ML IV ×2 (01:03→06:18)
[2022-01-14] MEDS: 0.9 % Sodium Chloride 1,000 ML 75 ML IVCONT (01:04)
[2022-01-14] MEDS: vancomycin HCL 1,250 MG in 0.9 % Sodium Chloride 250 ML 166.67 MG IV (06:50)
[2022-01-14 07:23] LABS: MANUAL DIFF FLAG NO
[2022-01-14] MEDS: Acetaminophen 325 MG TABLET 650 MG PO (07:24)
[2022-01-14 07:28] LABS: Basophils Absolute Auto 0.1 X10*3/uL (0.0-0.2); Basophils Percent Auto 0.4 % (0-2); Eosinophils Percent Auto 0.3 % (0-4); Hematocrit 42.9 % (42.0-52.0); Hemoglobin 13.7 g/dl (14.0-18.0); Imm Gran Abs Auto 0.05 X10*3/uL (0.00-0.03); Imm Gran Pct Auto 0.4 % (0.0-0.4); Lymphocytes Absolute Auto 1.3 X10*3/uL (1.2-4.9); Lymphocytes Percent Auto 10.2 % (20-40); Mean Corpuscular HGB Conc 31.9 g/dl (31.0-36.0); Mean Corpuscular Hemoglobin 26.7 pg (27.0-33.0); Mean Corpuscular Volume 83.5 fL (80.0-98.0); Mean Platelet Volume 11.6 fL (9.4-12.4); Monocytes Absolute Auto 1.1 X10*3/uL (0.1-1.2); Monocytes Percent Auto 8.7 % (2-11); Neutrophils Absolute Auto 10.4 x10*3/uL (2.0-8.3); Platelet Count 215 X10*3/uL (160-400); Red Blood Count 5.14 X10*6/uL (4.60-5.80); Red Cell Distribution Width 14.3 % (11.0-16.0)
[2022-01-14 07:43] LABS: Anion Gap 11 (12-20); Blood Urea Nitrogen 9 mg/dL (9-16); Calcium 8.8 mg/dL (8.4-10.2); Carbon Dioxide 24 mmol/L (22-29); Chloride 104 mmol/L (96-108); Creatinine Clr Calc Pharmacy 107.8; Estimated Glomerular Filt Rate > 60; Glucose Random 106 mg/dL (60-115); Potassium 4.2 mmol/L (3.3-5.1); Sodium 135 mmol/L (135-145)
[2022-01-14 08:04] LABS: Hepatitis A Antibody IgM 0.45 Index (0-0.79); ~Hepatitis A Antibody IgM Nonreactive (Nonreactive)
[2022-01-14 08:12] LABS: HBc Num1 0.07 S/CO (0.00-0.79); HBsAGNum1 0.23 S/CO (0.00-0.99); Hepatitis B Core Antibody Nonreactive (Nonreactive); Hepatitis B Surface Antigen Negative (Negative); ~HepC Num1 0.13 S/CO (0.00-0.79); ~Hepatitis B Surface Antibody NONREACTIVE (Nonreactive); ~Hepatitis C Antibody Nonreactive (Nonreactive)
--- NOTE | 2022-01-14 09:30 | MHC.CM.PN ---
CM MET WITH PT AND SON AT BEDSIDE PT REPORTS HE LIVES ALONE, IS FULLY INDEPENDENT, WORKS AND DRIVES PT REPORTS HE USES A CPAP AT NIGHT AND NO OTHER DME PT DENIES ANY HOME/COMMUNITY SERVICES PT REPORTS HIS PCP IS AT [facility], HE DOES NOT REMEMBER THE NAME PT COMPLETED A HCP TODAY NAMING HIS SON, DANIEL DOWNING JR, HIS AGENT PT REPORTS HE RECEIVED THE J&J VACCINE AGAINST COVID-19 DC PLAN, HOME NO SERVICES PT WILL DRIVE HIMSELF AT DC
--- NOTE | 2022-01-14 11:35 | HO.PM.IMPN ---
Subjective Subjective Date of Service: 01/14/22 Interval History: cc: lle erythema interval history:improved, still with pain Respiratory Respiratory: Reports no additional respiratory complaints Gastrointestinal Gastrointestinal: Reports no additional gastrointestinal complaints Physical Exam Vital Signs: Vital Signs: Last Vital Signs Temp 99.4 F 01/14/22 09:31 Pulse 94 01/14/22 06:35 Resp 20 01/14/22 06:35 BP 118/54 L 01/14/22 06:35 Pulse Ox 96 01/14/22 06:35 BMI result Body Mass Index 35.7 General: AO X 3, no acute distress Resp: CTA bilateral, no accessory muscles used CVS: S1,S2,RRR GI: soft, non tender, non distended Neuro: motor grossly intact, alert Psych: appropriate affect, appropriate insight LLE erythema, tender Objective Data Active Medications Acetaminophen (Acetaminophen 325 Mg Tablet) 650 mg PO Q6H PRN PRN Reason: Pain, Mild (Pain Scale 1-3) Last Admin: 01/14/22 07:24 Dose: 650 mg Documented by: BRITT Enoxaparin Sodium (Enoxaparin Sodium 40 Mg/0.4 Ml Syringe) 40 mg SUBCUT Q24H [facility] Last Admin: 01/14/22 01:02 Dose: 40 mg Documented by: ROLLY Vancomycin HCl 1,000 mg/ (Sodium Chloride) 270 mls @ 270 mls/hr IV Q12H DARSHANA Melatonin (Melatonin 3 Mg Tablet) 6 mg PO BEDTIME PRN PRN Reason: Insomnia Pharmacy Consult (Consult Rx Perform Med Rec) 1 each MISCELLANE ONCE PRN PRN Reason: Consult order Pharmacy Consult (Consult Rx Vancomycin Dosing) 1 each MISCELLANE DAILY PRN PRN Reason: Consult order Senna (Sennosides 8.6 Mg Tablet) 17.2 mg PO BEDTIME PRN PRN Reason: Constipation Sodium Chloride (0.9 % Sodium Chloride Flush 3 Ml Syringe) 3 ml IVFLUSH QSHIFT [facility] Last Admin: 01/14/22 07:08 Dose: Not Given Documented by: BRITT Non-Admin Reason: IV Running Labs CBC & Chem 7: 01/14/22 06:58 01/14/22 06:58 Labs: Laboratory Results - last 24 hr 01/13/22 01/13/22 01/13/22 15:46 15:46 15:46 MCV 82.6 MCH 27.0 MCHC 32.7 RDW 14.1 Plt Count 200 MPV 11.0 Immature Gran % (Auto) 0.6 H Neut % (Auto) 89.1 H Lymph % (Auto) 5.2 L [place] % (Auto) 4.9 Eos % (Auto) 0.0 Baso % (Auto) 0.2 Lymph # (Auto) 0.8 L [place] # (Auto) 0.8 Eos # (Auto) 0.0 Baso # (Auto) 0.0 Abs Immat Gran (auto) 0.09 H Absolute Neuts (auto) 14.3 H Absolute Nucleated RBC 0.000 Nucleated RBC % (auto) 0.0 Anion Gap 13 Estim Creat Clear Calc 89.3 Estimated GFR > 60 Random Glucose 170 H Lactic Acid Calcium 8.6 Total Bilirubin 1.0 Direct Bilirubin 0.6 H AST 65 H ALT 86 H Alkaline Phosphatase 96 Total Protein 6.9 Albumin 3.9 Lipase 10 Urine Color DK YELLOW Urine Appearance CLEAR Urine pH 5.5 Ur Specific [place] 1.025 Urine Protein TRACE Urine Glucose (UA) NEG Urine Ketones 15 Urine Blood 2+ H Urine Nitrite NEG Ur Leukocyte Esterase NEG Urine RBC 5-9 H Urine WBC 0 Ur Squamous Epith Cells TRACE Urine Bacteria NONE Urine Mucus TRACE COVID-19 (JONATHAN) COVID-19 Clin Com Hepatitis A IgM Ab Hep Bs Antigen Hep Bs Antibody Hep B Core Total Ab Hepatitis C Ab (EIA) 01/13/22 01/13/22 01/14/22 18:00 19:14 06:58 MCV 83.5 MCH 26.7 L MCHC 31.9 RDW 14.3 Plt Count 215 MPV 11.6 Immature Gran % (Auto) 0.4 Neut % (Auto) 80.0 H Lymph % (Auto) 10.2 L [place] % (Auto) 8.7 Eos % (Auto) 0.3 Baso % (Auto) 0.4 Lymph # (Auto) 1.3 [place] # (Auto) 1.1 Eos # (Auto) 0.0 Baso # (Auto) 0.1 Abs Immat Gran (auto) 0.05 H Absolute Neuts (auto) 10.4 H Absolute Nucleated RBC 0.000 Nucleated RBC % (auto) 0.0 Anion Gap Estim Creat Clear Calc Estimated GFR Random Glucose Lactic Acid 1.0 Calcium Total Bilirubin Direct Bilirubin AST ALT Alkaline Phosphatase Total Protein Albumin Lipase Urine Color Urine Appearance Urine pH Ur Specific [place] Urine Protein Urine Glucose (UA) Urine Ketones Urine Blood Urine Nitrite Ur Leukocyte Esterase Urine RBC Urine WBC Ur Squamous Epith Cells Urine Bacteria Urine Mucus COVID-19 (JONATHAN) Negative COVID-19 Clin Com See Note Hepatitis A IgM Ab Hep Bs Antigen Hep Bs Antibody Hep B Core Total Ab Hepatitis C Ab (EIA) 01/14/22 01/14/22 06:58 06:58 MCV MCH MCHC RDW Plt Count MPV Immature Gran % (Auto) Neut % (Auto) Lymph % (Auto) [place] % (Auto) Eos % (Auto) Baso % (Auto) Lymph # (Auto) [place] # (Auto) Eos # (Auto) Baso # (Auto) Abs Immat Gran (auto) Absolute Neuts (auto) Absolute Nucleated RBC Nucleated RBC % (auto) Anion Gap 11 L Estim Creat Clear Calc 107.8 Estimated GFR > 60 Random Glucose 106 D Lactic Acid Calcium 8.8 Total Bilirubin Direct Bilirubin AST ALT Alkaline Phosphatase Total Protein Albumin Lipase Urine Color Urine Appearance Urine pH Ur Specific [place] Urine Protein Urine Glucose (UA) Urine Ketones Urine Blood Urine Nitrite Ur Leukocyte Esterase Urine RBC Urine WBC Ur Squamous Epith Cells Urine Bacteria Urine Mucus COVID-19 (JONATHAN) COVID-19 Clin Com Hepatitis A IgM Ab Nonreactive Hep Bs Antigen Negative Hep Bs Antibody NONREACTIVE Hep B Core Total Ab Nonreactive Hepatitis C Ab (EIA) Nonreactive Assessment and Plan (1) Cellulitis of left leg: Status: Acute Plan 51M presented with LLE erythema, pain sepsis present on admission, due to lle cellulitis continue vanc will dc zosyn, doubt gram negatives follow up cultures obesity weight loss recommended transaminitis likely NAFLD, outpatient follow up, weight loss US unremarkable full code dvt prophylaxis - lovenox reason for continued hospitalization: awaiting cultures, deferevensence Quality Stroke Does the patient have a stroke diagnosis?: No VTE Prior VTE?: No VTE Risk Level:: Medical - moderate - high VTE Device Contraindication: Treatment Not Indicated VTE Drug Contraindication: N/A - Med Ordered
--- NOTE | 2022-01-14 11:46 | PHA.PROG ---
Admission Date/Time: January 13, 2022 23:42 Indication: Cellulitis Weight in k.594 kg Adjusted body weight in K.67 kg [place] body weight in K.4 kg Obesity Dosing Indication % IBW: 155% Serum Creatinine - Last 168 Hours 01/13/22 01/14/22 15:46 06:58 Creatinine 1.17 0.97 Estimated CrCl and GFR - Last 168 Hours 01/13/22 01/14/22 15:46 06:58 Estim Creat Clear Calc 89.3 107.8 Estimated GFR > 60 > 60 Vancomycin Loading Dose: N/A Current Vancomycin Dosing Regimen: 1000 mg Q12H Date and Time for next Vancomycin Level to be drawn: 01/15 @ 0500 Pharmacist Comments on Vancomycin Plan: First dose given in the ED 01/13 @ 1723, vancomycin 1250 mg (11 mg/kg) which is not an optimal loading dose One time dose order by overnight RPH given 01/14 @ 0650, vancomycin 1250 mg. Continue this dose Q12H would be supratherpautic. Maintenance dose vancomycin 1000 mg Q12H to be given 01/14 @ 1900. Expected AUC 494 with a trough of 14.2 trough to be drawn prior to 4th dose Pharmacy to monitor renal function daily. Ирина Hilton PharmD Vancomycin dosing will take advantage of [employer] as a clinical decision support tool that uses Bayesian modeling to calculate individual patient's pharmacokinetic parameters and forecast the patient's drug concentration time course with the target goal AUC 24 range of 400 - 600 mg/L/hr.
[2022-01-14] MEDS: vancomycin HCL 1,000 MG in 0.9 % Sodium Chloride 250 ML 270 MG IV (18:06)
[2022-01-14] MEDS: 0.9 % Sodium Chloride Flush 3 ML SYRINGE IVFLUSH ×2 (18:07→20:48)
[2022-01-15 03:36] VITALS: BP 133/70; PULSE 70; RESP 16; TEMP 36.5; O2SAT 98
[2022-01-15 06:25] LABS: Hematocrit 45.3 % (42.0-52.0); Hemoglobin 14.2 g/dl (14.0-18.0); Mean Corpuscular HGB Conc 31.3 g/dl (31.0-36.0); Mean Corpuscular Hemoglobin 26.3 pg (27.0-33.0); Mean Corpuscular Volume 83.9 fL (80.0-98.0); Mean Platelet Volume 11.2 fL (9.4-12.4); Platelet Count 236 X10*3/uL (160-400); Red Cell Distribution Width 14.6 % (11.0-16.0); White Blood Count 8.8 X10*3/uL (4.8-10.8)
[2022-01-15 06:42] LABS: Vancomycin Trough 5.7 mcg/mL (10.0-20.0)
[2022-01-15 06:50] LABS: Anion Gap 13 (12-20); Blood Urea Nitrogen 12 mg/dL (9-16); Calcium 9.4 mg/dL (8.4-10.2); Carbon Dioxide 26 mmol/L (22-29); Chloride 106 mmol/L (96-108); Creatinine Clr Calc Pharmacy 102.5; Estimated Glomerular Filt Rate > 60; Glucose Fasting 100 mg/dL (60-99); Potassium 4.6 mmol/L (3.3-5.1); Sodium 140 mmol/L (135-145)
--- NOTE | 2022-01-15 07:03 | HE.PHANOTE ---
RE VANCO Trough returned low at 5.7, increasing frequency to 1g q8h.Per insight, suspected AUC 523; TROUGH 12.0. Next trough scheduled to 01/16 @0500
[2022-01-15] MEDS: vancomycin HCL 1,000 MG in 0.9 % Sodium Chloride 250 ML 270 MG IV ×2 (07:25→23:07)
[2022-01-15] MEDS: 0.9 % Sodium Chloride Flush 3 ML SYRINGE IVFLUSH ×3 (07:28→23:08)
[2022-01-15 07:50] VITALS: BP 118/67; PULSE 75; RESP 18; TEMP 36; O2SAT 97
--- NOTE | 2022-01-15 09:53 | HO.PM.IMPN ---
Subjective Subjective Date of Service: 01/15/22 Interval History: cc: lle erythema interval history:improved, still with pain, fevers Cardiovascular Cardiovascular: Reports no additional cardiovascular complaints Respiratory Respiratory: Reports no additional respiratory complaints Physical Exam Vital Signs: Vital Signs: Last Vital Signs Temp 96.8 F 01/15/22 07:50 Pulse 75 01/15/22 07:50 Resp 18 01/15/22 07:50 BP 118/67 01/15/22 07:50 Pulse Ox 97 01/15/22 07:50 BMI result Body Mass Index 35.6 General: AO X 3, no acute distress Resp:? CTA bilateral, no accessory muscles used CVS: S1,S2,RRR GI: soft, non tender, non distended Neuro:? motor grossly intact, alert Psych: appropriate affect, appropriate insight? LLE improving erythema and tenderness Objective Data Active Medications Acetaminophen (Acetaminophen 325 Mg Tablet) 650 mg PO Q6H PRN PRN Reason: Pain, Mild (Pain Scale 1-3) Last Admin: 01/14/22 07:24 Dose: 650 mg Documented by: COOPEB Enoxaparin Sodium (Enoxaparin Sodium 40 Mg/0.4 Ml Syringe) 40 mg SUBCUT Q24H [facility] Last Admin: 01/14/22 23:26 Dose: 40 mg Documented by: MORRINL Vancomycin HCl 1,000 mg/ (Sodium Chloride) 270 mls @ 270 mls/hr IV Q8H [facility] Last Infusion: 01/15/22 08:50 Dose: 0 mls/hr Documented by: DABStacey Melatonin (Melatonin 3 Mg Tablet) 6 mg PO BEDTIME PRN PRN Reason: Insomnia Pharmacy Consult (Consult Rx Perform Med Rec) 1 each MISCELLANE ONCE PRN PRN Reason: Consult order Pharmacy Consult (Consult Rx Vancomycin Dosing) 1 each MISCELLANE DAILY PRN PRN Reason: Consult order Senna (Sennosides 8.6 Mg Tablet) 17.2 mg PO BEDTIME PRN PRN Reason: Constipation Sodium Chloride (0.9 % Sodium Chloride Flush 3 Ml Syringe) 3 ml IVFLUSH QSHIFT [facility] Last Admin: 01/15/22 07:28 Dose: 3 ml Documented by: MACHO Labs CBC & Chem 7: 01/15/22 06:13 01/15/22 06:13 Labs: Laboratory Results - last 24 hr 01/15/22 01/15/22 01/15/22 06:13 06:13 06:13 MCV 83.9 MCH 26.3 L MCHC 31.3 RDW 14.6 Plt Count 236 MPV 11.2 Absolute Nucleated RBC 0.000 Nucleated RBC % (auto) 0.0 Anion Gap 13 Estim Creat Clear Calc 102.5 Estimated GFR > 60 Fasting Glucose 100 H Calcium 9.4 D Vancomycin Trough 5.7 L Microbiology Microbiology Results: Microbiology 01/13/22 16:25 Blood Culture - Preliminary Blood - Venous No growth after 24 hours. 01/13/22 15:46 Blood Culture - Preliminary Blood - Venous No growth after 24 hours. Assessment and Plan (1) Cellulitis of left leg: Status: Acute Plan 51M presented with LLE erythema, pain sepsis present on admission, due to lle cellulitis continue vanc still febrile, but improving cultures negative so far obesity weight loss recommended transaminitis likely NAFLD, outpatient follow up, weight loss US unremarkable full code dvt prophylaxis - lovenox reason for continued hospitalization: awaiting deferevensence Quality Stroke Does the patient have a stroke diagnosis?: No VTE Prior VTE?: No VTE Risk Level:: Medical - moderate - high VTE Device Contraindication: Treatment Not Indicated VTE Drug Contraindication: N/A - Med Ordered
[2022-01-15 11:56] VITALS: BP 126/70; PULSE 77; RESP 16; TEMP 36.2; O2SAT 97
[2022-01-15] MEDS: vancomycin HCL 1,000 MG in 0.9 % Sodium Chloride 250 ML 100 MG IV (14:36)
--- NOTE | 2022-01-15 14:39 | MHC.CM.PN ---
PLAN IS HOME Wednesday01/16/22. HOME NO SERVICES
[2022-01-15 15:30] VITALS: BP 122/67; PULSE 82; RESP 14; TEMP 36.4; O2SAT 96
[2022-01-15 18:53] VITALS: BP 107/54; PULSE 84; RESP 14; TEMP 36.7; O2SAT 94
[2022-01-15] MEDS: Acetaminophen 325 MG TABLET 650 MG PO (21:23)
[2022-01-15] MEDS: Enoxaparin Sodium 40 MG/0.4 ML SYRINGE SUBCUT (23:08)
[2022-01-15 23:22] VITALS: BP 118/70; PULSE 69; RESP 18; TEMP 36.1; O2SAT 94
[2022-01-16 03:39] VITALS: BP 124/74; PULSE 67; RESP 16; TEMP 36.7; O2SAT 98
[2022-01-16] MEDS: vancomycin HCL 1,000 MG in 0.9 % Sodium Chloride 250 ML 270 MG IV (06:23)
[2022-01-16 07:16] VITALS: BP 111/58; PULSE 68; RESP 18; TEMP 36.3; O2SAT 96
[2022-01-16 09:07] LABS: Anion Gap 12 (12-20); Blood Urea Nitrogen 12 mg/dL (9-16); Calcium 9.3 mg/dL (8.4-10.2); Carbon Dioxide 25 mmol/L (22-29); Chloride 106 mmol/L (96-108); Estimated Glomerular Filt Rate > 60; Glucose Random 89 mg/dL (60-115); Potassium 5.1 mmol/L (3.3-5.1); Sodium 138 mmol/L (135-145)
[2022-01-16] MEDS: 0.9 % Sodium Chloride Flush 3 ML SYRINGE IVFLUSH (09:07)
--- NOTE | 2022-01-16 09:58 | P.DS_ITS ---
DS: Providers Provider Date of Service: 01/16/22 Date of admission: 01/13/22 23:42 Primary care physician: Unknown Physician DS: Diagnosis Discharge Diagnosis (1) Cellulitis of left leg: Status: Acute DS: Summary Hospital Course Hospital Course: from initial hpi: Chief Complaint: Left leg pain redness and swelling 51-year-old male with a past medical history of obesity, prior history of cellulitis of the right lower extremity; presented to the hospital today with a chief complaint of left leg pain redness and swelling.? Patient reports that he had fever yesterday and today he noted to have pain redness and swelling developed in the left leg; given above symptoms presented to the ER for further evaluation.? Denies any trauma or injury.? Denies any scratching of the leg.? Denies any cough or sputum production.? Denies any GI symptoms.? Denies any chest pain palpitations lightheadedness or dizziness.? Review of all other systems is negative except mentioned above ER course: Per ER team patient noted to have mild leukocytosis; left leg findings concer carlee for cellulitis; venous duplex was negative.? Given IV vancomycin and Zosyn.? Admitted to the hospital for further management. hospital course: Patient was admitted for sepsis secondary to left lower extremity cellulitis. He was treated with vancomycin and erythema, pain, sepsis resolved. His cultures remain negative. He will be transitioned to 1 week of cefuroxime and doxycycline. For his obesity was recommended to lose weight, patient was noted to have some transaminitis, this was likely some nonalcoholic fatty liver disease, weight loss is recommended. Time Spent with Patient Time attestation: Total time spent providing and/or coordinating discharge services: Discharge coordination time: Greater than 30 minutes Quality: Safe Use of Opioids Does Pt have an Active Cancer Diagnosis on the Problem List?: No Quality: Stroke Does the patient have a stroke diagnosis?: No Physical Exam Vital Signs: Vital Signs: Last Vital Signs Temp 97.4 F 01/16/22 07:16 Pulse 68 01/16/22 07:16 Resp 18 01/16/22 07:16 BP 111/58 L 01/16/22 07:16 Pulse Ox 96 01/16/22 07:16 BMI result Body Mass Index 35.6 General: AO X 3, no acute distress Resp: CTA bilateral, no accessory muscles used CVS: S1,S2,RRR GI: soft, non tender, non distended Neuro: motor grossly intact, alert Psych: appropriate affect, appropriate insight DS: Data Data Completed and Pending Labs on day of discharge: Laboratory Results - last 24 hr 01/16/22 08:16 Sodium 138 Potassium 5.1 Chloride 106 Carbon Dioxide 25 Anion Gap 12 BUN 12 Creatinine 0.95 Estim Creat Clear Calc 110.0 Estimated GFR > 60 Random Glucose 89 Calcium 9.3 Preliminary micro results at discharge 01/13/22 16:25 Blood Culture - Preliminary Blood - Venous No growth after 48 hours. 01/13/22 15:46 Blood Culture - Preliminary Blood - Venous No growth after 48 hours. Discharge Plan Discharge Patient Disposition: Home, Self-Care Discharge Diagnosis: cellultis Referrals: Physician,Unknown J [Primary Care Provider] - 1 Week Discharge Medications: New cephalexin 500 mg capsule 500 mg PO BID Qty: 14 0RF doxycycline hyclate 100 mg capsule 100 mg PO BID Qty: 14 0RF Discharge Orders: Discharge Order (Routine); Ordered 01/16/22 Ordered By: Jeffry Drake Diet: advance to usual diet Activity on Discharge: As tolerated Stand Alone Forms: Patient Portal Discharge page Care Plan Goals: recovery Health Concerns: celluliutis Plan of Treatment: dottie collins one week Assessment: see above
--- NOTE | 2022-01-16 10:26 | MHC.CM.PN ---
PT MEDICALLY CLEARED FOR D/C HOME SELF-CARE, PT'S WILL SELF TRANSPORT CAR IN LOT
[2022-01-16 11:03] VITALS: BP 113/57; PULSE 84; RESP 18; TEMP 36.7; O2SAT 97
== END 2022-01-16 12:05 | disposition home or self-care (01) | DRG 872 ==
LOC: HO.ED 18:54 → HO.EDOVER 23:48 → HO.S3 01-14 11:18
PROVIDERS: Admitting Provider Hospitalist; Emergency Provider Emergency Medicine; PCP Internal Medicine; Visit Provider Internal Medicine
DX: A41.9 Sepsis, unspecified organism (principal); L03.116 Cellulitis of left lower limb; K76.0 Fatty (change of) liver, not elsewhere classified; G47.33 Obstructive sleep apnea (adult) (pediatric); E66.9 Obesity, unspecified; Z20.822 Contact with and (suspected) exposure to COVID-19
CPT/HCPCS: 36415; 73590; 76705; 80048; 80076; 80202; 81001; 81003; 83605; 83690; 85025; 85027; 86704; 86706; 86709; 86803; 87040; 87340; 87635; 93005; 93971; 96361; 96365; 96375; 99285; J1650; J2543; J3370

== ENCOUNTER 2022-04-17 20:50 | Emergency (ER) | payer OTHER, SELFPAY ==
--- NOTE | ~2022-04-17 | XR_ITS ---
EXAMINATION: XR CHEST CLINICAL INFORMATION: Covid positive COMPARISON: 04/08/2017 TECHNIQUE: Frontal view of the chest was obtained. FINDINGS: Cardiac leads overlie the chest. The lungs are well expanded. There is no focal consolidation, edema, or effusion. No pneumothorax. The cardiomediastinal silhouette is within normal limits. No acute osseous abnormality. XR/XR chest 1V IMPRESSION: No acute pulmonary finding.
[2022-04-17 21:47] VITALS: BP 102/66; PULSE 112; RESP 18; TEMP 38.4; O2SAT 95; BMI 35.7
[2022-04-17 22:13] LABS: MANUAL DIFF FLAG NO
[2022-04-17 22:15] LABS: Basophils Percent Auto 0.2 % (0-2); Eosinophils Absolute Auto 0.1 X10*3/uL (0.0-0.4); Eosinophils Percent Auto 0.6 % (0-4); Hematocrit 45.2 % (42.0-52.0); Hemoglobin 14.5 g/dl (14.0-18.0); Imm Gran Pct Auto 1.4 % (0.0-0.4); Lymphocytes Absolute Auto 0.6 X10*3/uL (1.2-4.9); Lymphocytes Percent Auto 2.6 % (20-40); Mean Corpuscular HGB Conc 32.1 g/dl (31.0-36.0); Mean Corpuscular Hemoglobin 26.5 pg (27.0-33.0); Mean Corpuscular Volume 82.6 fL (80.0-98.0); Mean Platelet Volume 11.1 fL (9.4-12.4); Monocytes Absolute Auto 1.6 X10*3/uL (0.1-1.2); Monocytes Percent Auto 7.4 % (2-11); Neutrophils Absolute Auto 19.3 x10*3/uL (2.0-8.3); Neutrophils Percent Auto 87.8 % (45-73); Platelet Count 232 X10*3/uL (160-400); Red Blood Count 5.47 X10*6/uL (4.60-5.80); Red Cell Distribution Width 14.2 % (11.0-16.0); SCAN SMEAR FLAG 1; White Blood Count 21.9 X10*3/uL (4.8-10.8)
[2022-04-17 22:25] LABS: COVID-19 Test Positive (Negative); IDNOW Serial# 16C4AD1C; Lactic Acid 1.9 mmol/L (0.5-2.0)
[2022-04-17 22:28] LABS: Anion Gap 16 (12-20); Blood Urea Nitrogen 16 mg/dL (9-16); C Reactive Protein 2.84 mg/dL (< or = 0.50); Calcium 8.8 mg/dL (8.4-10.2); Carbon Dioxide 20 mmol/L (22-29); Chloride 104 mmol/L (96-108); Creatinine Clr Calc Pharmacy 86.4; Estimated Glomerular Filt Rate > 60; Glucose Random 128 mg/dL (60-115); Potassium 3.8 mmol/L (3.3-5.1); Sodium 136 mmol/L (135-145)
[2022-04-17 22:55] VITALS: BP 123/59; PULSE 100; RESP 17; TEMP 38.2; O2SAT 96
[2022-04-17 22:56] LABS: Erythrocyte Sedimentation Rate 4 MM/HR (0-15)
--- NOTE | 2022-04-17 23:15 | ED.GENADULT ---
HPI - General Adult General Chief complaint: Skin/Abscess/Foreign Body Stated complaint: covid + 103 fever Time Seen by Provider: 04/17/22 22:56 Source: patient Mode of arrival: ambulatory Limitations: no limitations History of Present Illness HPI narrative: Patient comes to the emergency room complaining of fever, chills, positive COVID test and left lower extremity erythema. Patient states that he returned from work today from [place]. When he arrived home, patient had fever and chills, he took a home COVID test and it was positive. Shortly after, patient noticed that he had left lower extremity erythema. Patient states that he is prone to cellulitis, it has happened before in both lower extremities. Patient states that the pain is in 1 specific spot in the lateral aspect of the calf. Related Data Previous Rx's Medication Instructions Recorded cephalexin 500 mg capsule 500 mg PO BID #14 caps 01/16/22 doxycycline hyclate 100 mg capsule 100 mg PO BID #14 caps 01/16/22 cephalexin 500 mg capsule 500 mg PO BID #14 caps 04/18/22 doxycycline hyclate 100 mg tablet 100 mg PO BID 7 days #14 tabs 04/18/22 nirmatrelvir 300 mg (150 mg See Rx Instructions PO .COMPLEX 04/18/22 x2)-ritonavir 100 mg tablet,dose #30 ea pack(EUA) (Paxlovid) Allergies Allergy/AdvReac Type Severity Reaction Status Date / Time No Known Allergies Allergy Verified 10/20/21 15:27 [No Known Allergies*] Review of Systems Review of Systems: Constitutional : No Weight loss, complaining of fever and chills, no Night Sweats, complaining of fatigue and generalized malaise ENT/Mouth : No Hearing loss, No Ear Pain, No Nasal Congestion, No Sinus Pain, No Hoarseness, No sore throat, No Rhinorrhea, No Swallowing Difficulty Eyes: No Eye Pain, No Swelling, No Redness, No Foreign Body, No Discharge, No Vision Changes Cardiovascular : No Chest Pain, No SOB, No Dyspnea on Exertion, No Orthopnea, No Edema, No Palpitations Respiratory : No Cough, No Sputum, No Wheezing, No Smoke Exposure, No Dyspnea Gastrointestinal : No Nausea, No Vomiting, No Diarrhea, No Constipation, No abdominal Pain, No Hematochezia, No Melena Genitourinary : no irregular bleeding, No Dysuria, No Urinary Frequency, No Hematuria, No Urinary Incontinence, No Urgency, No Flank Pain, No Urinary Flow Changes, No Hesitancy Musculoskeletal : No joint pain, No Myalgias, No Joint Swelling Skin : Complaining of left lower extremity erythema, very mild pain to the medial aspect of the left calf Neuro : No Weakness, No Numbness, No Paresthesias, No Loss of Consciousness, No Dizziness, No Headache Psych : No Anxiety/Panic, No Depression, No SI/HI/AH/VH, No Social Issues, Heme/Lymph: No Bruising, No Bleeding,No Lymphadenopathy Endocrine : No Polyuria, No Polydipsia, No Temperature Intolerance [facility] Past Medical History Medical History (Updated 04/18/22 @ 01:03 by Liz Lanec MD) Cellulitis of left leg JULIO on CPAP Surgical History History of circumcision Social History Social History Household Members: None Housing: House Do you presently have visiting nurse or other home services: No Alcohol intake: never Patient Tobacco Use Status: Never used Tobacco Advance Directives: Yes Advance Directives on File: Yes Advance Directives Date on File: 01/14/22 service: No Current occupational status: employed Physical Exam ED Vital Signs: Vital Signs - 24 hr 04/17/22 21:47 04/17/22 22:55 04/17/22 23:23 Temperature 101.1 F H 100.8 F H Pulse Rate 112 H 100 100 Respiratory Rate 18 17 18 Blood Pressure 102/66 123/59 L 105/65 Pulse Oximetry 95 96 98 Oxygen Delivery Method Room Air Room Air Room Air BMI result Body Mass Index 35.7 Const Other: Appearance: Alert. Oriented X3. No acute distress. Eyes: Pupils equal, round and reactive to light. ENT: Pharynx normal. Neck: Normal inspection. Neck supple. No lymph nodes noted. No crepitus CVS: Normal heart rate and rhythm. Pulses normal. Normal S1 and S2 Respiratory: No respiratory distress. Breath sounds normal. No Wheezing. No rales , 96% on room air. Abdomen: Soft and nontender. No rigidity. No distention. Skin: Skin warm and dry. Warmth and lower extremity cellulitis without edema Extremities: No lower extremity edema. No Lacerations. No Rash Neuro: Oriented X 3. No motor deficit. No sensory deficit. Moving all extremities. No slurred speech. CN 2 through 12 grossly intact Psych: calm, cooperative, normal affect Course Course Course Narrative: Patient's white blood cell count is 21.9. Lactic acid pending and chest x-ray pending. After a dose of Tylenol, fever is 100.8 at this time, blood pressure 123/59, heart rate 100. Patient is receiving IV fluids based on ideal weight of 66 kg, patient is obese. Patient receiving ceftriaxone and doxycycline IV. Patient has COVID and for cellulitis. Patient's blood cell count is elevated but lactic acid is normal, blood pressure 105/65. Oxygen saturation 98%, x-ray normal. I discussed the patient with our hospitalist, at this time, no need for admission. Patient will try p.o. antibiotics with strict instructions to return if he has no improvement or worsening symptoms. Sepsis is not suspected Patient states that he has been immunized twice for COVID-19 Medical Decision Making Lab Data Result diagrams: 04/17/22 22:07 04/17/22 22:07 Labs: Lab Results 04/17/22 04/17/22 04/17/22 Range/Units 22:07 22:07 22:07 WBC 21.9 H (4.8-10.8) X10*3/uL RBC 5.47 (4.60-5.80) X10*6/uL Hgb 14.5 (14.0-18.0) g/dl Hct 45.2 (42.0-52.0) % MCV 82.6 (80.0-98.0) fL MCH 26.5 L (27.0-33.0) pg MCHC 32.1 (31.0-36.0) g/dl RDW 14.2 (11.0-16.0) % Plt Count 232 (160-400) X10*3/uL MPV 11.1 (9.4-12.4) fL Immature Gran % (Auto) 1.4 H (0.0-0.4) % Neut % (Auto) 87.8 H (45-73) % Lymph % (Auto) 2.6 L (20-40) % Chaves % (Auto) 7.4 (2-11) % Eos % (Auto) 0.6 (0-4) % Baso % (Auto) 0.2 (0-2) % Lymph # (Auto) 0.6 L (1.2-4.9) X10*3/uL Chaves # (Auto) 1.6 H (0.1-1.2) X10*3/uL Eos # (Auto) 0.1 (0.0-0.4) X10*3/uL Baso # (Auto) 0.0 (0.0-0.2) X10*3/uL Abs Immat Gran (auto) 0.30 H (0.00-0.03) X10*3/uL Absolute Neuts (auto) 19.3 H (2.0-8.3) x10*3/uL Absolute Nucleated RBC 0.000 (0.0-0.012) X10*3/uL Nucleated RBC % (auto) 0.0 (0.0-0.2) /100WBC ESR 4 (0-15) MM/HR Sodium 136 (135-145) mmol/L Potassium 3.8 D (3.3-5.1) mmol/L Chloride 104 (96-108) mmol/L Carbon Dioxide 20 L (22-29) mmol/L Anion Gap 16 (12-20) BUN 16 (9-16) mg/dL Creatinine 1.21 (0.5-1.4) mg/dL Estim Creat Clear Calc 86.4 Estimated GFR > 60 Random Glucose 128 H D (60-115) mg/dL Lactic Acid (0.5-2.0) mmol/L Calcium 8.8 (8.4-10.2) mg/dL C-Reactive Protein 2.84 H (< or = 0.50) mg/dL COVID-19 (JONATHAN) (Negative) COVID-19 Clin Com 04/17/22 04/17/22 04/17/22 Range/Units 22:07 22:07 23:09 WBC (4.8-10.8) X10*3/uL RBC (4.60-5.80) X10*6/uL Hgb (14.0-18.0) g/dl Hct (42.0-52.0) % MCV (80.0-98.0) fL MCH (27.0-33.0) pg MCHC (31.0-36.0) g/dl RDW (11.0-16.0) % Plt Count (160-400) X10*3/uL MPV (9.4-12.4) fL Immature Gran % (Auto) (0.0-0.4) % Neut % (Auto) (45-73) % Lymph % (Auto) (20-40) % Chaves % (Auto) (2-11) % Eos % (Auto) (0-4) % Baso % (Auto) (0-2) % Lymph # (Auto) (1.2-4.9) X10*3/uL Chaves # (Auto) (0.1-1.2) X10*3/uL Eos # (Auto) (0.0-0.4) X10*3/uL Baso # (Auto) (0.0-0.2) X10*3/uL Abs Immat Gran (auto) (0.00-0.03) X10*3/uL Absolute Neuts (auto) (2.0-8.3) x10*3/uL Absolute Nucleated RBC (0.0-0.012) X10*3/uL Nucleated RBC % (auto) (0.0-0.2) /100WBC ESR (0-15) MM/HR Sodium (135-145) mmol/L Potassium (3.3-5.1) mmol/L Chloride (96-108) mmol/L Carbon Dioxide (22-29) mmol/L Anion Gap (12-20) BUN (9-16) mg/dL Creatinine (0.5-1.4) mg/dL Estim Creat Clear Calc Estimated GFR Random Glucose (60-115) mg/dL Lactic Acid 1.9 1.4 (0.5-2.0) mmol/L Calcium (8.4-10.2) mg/dL C-Reactive Protein (< or = 0.50) mg/dL COVID-19 (JONATHAN) Positive A (Negative) COVID-19 Clin Com See Note Imaging Data Chest x-ray: Radiologist's impression: FINDINGS: Cardiac leads overlie the chest. The lungs are well expanded. There is no focal consolidation, edema, or effusion. No pneumothorax. The cardiomediastinal silhouette is within normal limits. No acute osseous abnormality. XR/XR chest 1V IMPRESSION: No acute pulmonary finding Discharge Plan Discharge Clinical Impression: Cellulitis, COVID-19 Patient Disposition: Home, Self-Care Instructions: Cellulitis (ED), COVID-19 (Coronavirus Disease 2019) (ED) Additional Instructions: Please follow-up with your primary care physician tomorrow. If you have any worsening or new symptoms, please return to the emergency room or call 911 Prescriptions: New cephalexin 500 mg capsule 500 mg PO BID Qty: 14 0RF doxycycline hyclate 100 mg tablet 100 mg PO BID 7 Days Qty: 14 0RF Paxlovid (EUA) 300 mg (150 mg x 2)-100 mg tablets,dose pack See Rx Instructions .ROUTE .COMPLEX Qty: 30 0RF Rx Instructions: take TWO 150 mg tablets of nirmatrelvir with ONE 100 mg tablet of ritonavir twice daily for 5 days No Action cephalexin 500 mg capsule 500 mg PO BID Qty: 14 0RF doxycycline hyclate 100 mg capsule 100 mg PO BID Qty: 14 0RF
[2022-04-17 23:23] VITALS: BP 105/65; PULSE 100; RESP 18; O2SAT 98
[2022-04-17 23:26] LABS: Lactic Acid 1.4 mmol/L (0.5-2.0)
[2022-04-18] MEDS: cefTRIAXone sodium 1 GM in 0.9 % Sodium Chloride 50 ML IV (00:24)
[2022-04-18] MEDS: Doxycycline Hyclate 100 MG in 0.9 % Sodium Chloride 250 ML 166.67 MG IV (00:24)
[2022-04-18] MEDS: 0.9 % Sodium Chloride 2,000 ML 999 ML IVCONT (00:25)
[2022-04-18] MEDS: Ibuprofen 600 MG TABLET PO (00:25)
== END 2022-04-18 02:10 | disposition home or self-care (01) ==
PROVIDERS: Emergency Provider Emergency Medicine
DX: U07.1 COVID-19 (principal); L03.116 Cellulitis of left lower limb; M79.662 Pain in left lower leg; R50.9 Fever, unspecified
CPT/HCPCS: 71045; 80048; 83605; 85025; 85652; 86140; 87040; 87635; 96374; 96375; 99284; J0696

== ENCOUNTER 2023-07-12 09:48 | Outpatient (REF) | payer OTHER, SELFPAY ==
[2023-07-12 15:02] LABS: Prostate Specific Antigen 0.53 ng/mL (<0.05-4.0)
== END 2023-07-12 09:49 | disposition home or self-care (01) ==
LOC: HO.CHCLDS 09:48
PROVIDERS: Visit Provider Internal Medicine
DX: Z12.5 Encounter for screening for malignant neoplasm of prostate (principal)
CPT/HCPCS: 36415; 84153

== ENCOUNTER 2023-08-25 14:38 | Outpatient (REF) | payer OTHER, SELFPAY ==
--- NOTE | 2023-08-25 14:41 | EMG_ITS ---
Chief complaint: Bilateral hand numbness Reason for referral: Evaluate for Carpal Tunnel Syndrome Referred by: Dr. Diaz Procedure done: Bilateral upper extremities NCS/EMG Precautions and/or limitations: None The limb temperature was monitored continuously and remained between 32-36 degrees C during the performance of the NCS. Nerve Conduction Studies Anti Sensory Summary Table ?Stim Site NR Onset (ms) Norm Onset (ms) Peak (ms) Norm Peak (ms) O-P Amp (?V) Norm O-P Amp Site1 Site2 Delta-0 (ms) Dist (cm) Jakob (m/s) Norm Jakob (m/s) Left Median Anti Sensory (2nd Digit) Wrist ? 4.9 5.6 <3.6 3.2 >10 Wrist 2nd Digit 4.9 14.0 29 Right Median Anti Sensory (2nd Digit) Wrist NR <3.6 >10 Wrist 2nd Digit 14.0 Right Radial Anti Sensory (Thumb) Forearm ? 1.1 1.9 <3.1 18.0 Forearm Thumb 1.1 0.0 Left Ulnar Anti Sensory (5th Digit) Wrist ? 2.4 2.9 <3.7 9.7 >15.0 Wrist 5th Digit 2.4 14.0 58 Right Ulnar Anti Sensory (5th Digit) Wrist ? 2.0 2.5 <3.7 9.4 >15.0 Wrist 5th Digit 2.0 14.0 70 Motor Summary Table ?Stim Site NR Onset (ms) Norm Onset (ms) O-P Amp (mV) Norm O-P Amp iAmp (mV) Amp (1st) (%) Site1 Site2 Delta-0 (ms) Dist (cm) Jakob (m/s) Norm Jakob (m/s) Left Median Motor (Abd Poll Brev) Wrist ? 9.7 <3.9 0.9 >4.5 0.9 100.0 Elbow Wrist 1.3 22.5 173 >45 Elbow ? 8.4 0.7 0.7 77.8 Right Median Motor (Abd Poll Brev) Wrist ? 7.5 <3.9 3.0 >4.5 3.5 100.0 Elbow Wrist 4.0 23.0 58 >45 Elbow ? 11.5 1.6 1.9 53.3 Left Ulnar Motor (Abd Dig Minimi) Wrist ? 2.8 <3.0 9.6 >5 11.5 100.0 B Elbow Wrist 3.6 20.5 57 >45 B Elbow ? 6.4 9.1 10.8 94.8 A Elbow B Elbow 1.3 10.0 77 >45 A Elbow ? 7.7 10.1 12.0 105.2 Right Ulnar Motor (Abd Dig Minimi) Wrist ? 2.9 <3.0 8.5 >5 9.9 100.0 B Elbow Wrist 3.7 22.0 59 >45 B Elbow ? 6.6 7.5 8.6 88.2 A Elbow B Elbow 1.2 10.0 83 >45 A Elbow ? 7.8 7.2 8.4 84.7 EMG ?Side Muscle Nerve Root Ins Act Fibs Psw Amp Dur Poly Recrt Int Pat Comment Right 1stDorInt Ulnar C8-T1 Nml Nml Nml Nml Nml 0 Nml Complete Right FlexCarRad Median C6-7 Nml Nml Nml Nml Nml 0 Nml Complete Right Biceps Musculocut C5-6 Nml Nml Nml Nml Nml 0 Nml Complete Right Triceps Radial C6-7-8 Nml Nml Nml Nml Nml 0 Nml Complete Right Deltoid Axillary C5-6 Nml Nml Nml Nml Nml 0 Nml Complete Left 1stDorInt Ulnar C8-T1 Nml Nml Nml Nml Nml 0 Nml Complete Left FlexCarRad Median C6-7 Nml Nml Nml Nml Nml 0 Nml Complete Left Biceps Musculocut C5-6 Nml Nml Nml Nml Nml 0 Nml Complete Left Triceps Radial C6-7-8 Nml Nml Nml Nml Nml 0 Nml Complete Left Deltoid Axillary C5-6 Nml Nml Nml Nml Nml 0 Nml Complete FINDINGS: Bilateral median motor nerves showed prolonged distal latency, small amplitude and normal conduction velocity. Right median sensory nerve showed no response. Left median sensory nerve showed prolonged peak latency and small amplitude. All other nerves tested were within normal. Concentric needle EMG was performed in selected muscles of the bilateral upper extremities. Study did not reveal signs of electric abnormalities as shown in the table below. IMPRESSION: 1. This is an abnormal study. 2. There is electrodiagnostic evidence for bilateral moderate-severe median neuropathy at the wrist, consistent with carpal tunnel syndrome. Right worse than left. 3. There is no electrodiagnostic evidence for ulnar neuropathy, brachial plexopathy, or cervical radiculopathy. Thank you for your kind referral. Leah Acharya MD, SADIA Board Certified, [place] [employer] and [employer] (ABPMR) Board Certified, [place] [employer] Electrodiagn[employer] (ABEM) CODIN 75951 x 2 MTDD
== END 2023-08-25 14:39 | disposition home or self-care (01) ==
LOC: HO.NEURO 14:38
PROVIDERS: PCP Internal Medicine; Visit Provider Internal Medicine
DX: G56.03 Carpal tunnel syndrome, bilateral upper limbs (principal)
CPT/HCPCS: 95886; 95911

== ENCOUNTER → 2023-08-25 14:41 | Outpatient (BNV) | payer OTHER, SELFPAY | PROVIDERS: PCP Internal Medicine; Visit Provider Physical Medicine & Rehabilitation | DX: G56.13 Other lesions of median nerve, bilateral upper limbs (principal); G56.03 Carpal tunnel syndrome, bilateral upper limbs | CPT/HCPCS: 95886; 95911 ==

== ENCOUNTER 2023-11-30 08:43 | Outpatient (AMB) | payer OTHER, SELFPAY ==
--- NOTE | 2023-11-30 08:47 | A.OFFVIS_ITS ---
Intake Vital Signs 11/30/23 08:55 Height 5 ft 8 in Weight 235 lb BMI 35.7 Intake Visit Reasons: N/P B/L CTS EMG done with RB Intake Note: Milan 53 yr old right hand dominant male presents today for a new patient visit for B/L hands CTS. States his right is worse and states his symptoms started approx 6 years ago and has worsen, especially at night time. Patient has tried OTC pain cream with no improvement. EMG done with RB. 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 Allergies No Known Allergies [No Known Allergies*] Allergy (Verified 10/20/21 15:27) HPI N/P B/L CTS EMG done with RB HPI Details Milan is a 53 year old right hand dominant Mongolian speaking man who presents for a NCS review of his bilateral hand numbness. He complains of numbness primarily in the thumb, index, middle fingers bilaterally, R>L. Symptoms intermittent, but daily, worse at night. He says his symptoms have been present and worsening for some time. His numbness is worse with prolonged gripping or holding objects. He says he has some pain at night that accompanies the tingling, primarily at the base of his thumbs bilaterally. 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 Review of Systems Const All systems reviewed & are unremarkable except as noted in HPI and below Physical Exam Vital Signs: BMI result Body Mass Index 35.7 Const General: cooperative, healthy appearing and no acute distress Orientation/consciousness: patient oriented x3 HEENT Head: Yes normocephalic and Yes atraumatic Eyes EOM: EOMs intact bilaterally Resp Effort & Inspection: normal respiratory effort and able to speak in complete sentences Cardio Jugular venous distension: no JVD Skin General skin exam: turgor normal Rashes: no rashes Neuro General: patient oriented x3 Extrem Other: Evaluation of Upper Extremity: The patient is alert, oriented, and in no acute distress Neuro: Median, Ulnar, Radial nerves motor and sensory intact and sensation is normal to the tips of all digits No thenar or intrinsic wasting Good APB muscle belly firing and good finger cross Vascular: Cap refill brisk ROM: He can make a fist and extend all his digits Skin: No lacerations or abrasions. General: No Ecchymosis. No Erythema or evidence of infection. Nerve Conduction Study: IMPRESSION: 1. This is an abnormal study. 2. There is electrodiagnostic evidence for bilateral moderate-severe median neuropathy at the wrist, consistent with carpal tunnel syndrome. Right worse than left. 3. There is no electrodiagnostic evidence for ulnar neuropathy, brachial plexopathy, or cervical radiculopathy. Leah Acharya MD, SADIA 08/26/23 Psych Appearance: grossly normal Affect: normal affect Attitude: cooperative Assessment & Plan Assessment & Plan (1) Carpal tunnel syndrome of right wrist: Code(s): G56.01 - Carpal tunnel syndrome, right upper limb (2) Carpal tunnel syndrome of left wrist: Code(s): G56.02 - Carpal tunnel syndrome, left upper limb Plan Assessment & Plan: 1. Right carpal tunnel syndrome, moderate-severe Symptoms intermittent, but daily, worse at night This is his primary complaint today 2. Left carpal tunnel syndrome, moderate-severe Symptoms intermittent, but daily, worse at night I educated him about this condition I discussed operative and non-operative treatment options The patient would like to proceed with surgery, beginning with his right side He will follow up to discuss treatment for his left side when he recovers from surgery The risks and benefits of operative treatment were discussed with the patient and the patient wishes to proceed with surgery. These risks include, but are not limited to risk of damage to blood vessels, nerves, tendons, infection, recurrence, incomplete relief of preoperative symptoms, persistent pain, possible need for further surgery and the risks associated with regional blocks and anesthesia. The plan is to take the patient to the operating room sometime in the next few weeks for the following procedures: 1. Right carpal tunnel release, under local All of the preoperative paperwork including the consent was reviewed today. All the patient's questions were answered. The patient understands that they will be contacted by our home care scheduler soon to schedule this procedure He denies Diabetes, blood thinners, asthma, heart, lung, kidney issues Scribed for Wen Lozoya MD by Allan Edwards, medical office representative, on 11/30/23 at 9:07 AM, EST. Coding Level of Care Code New Pt Level 4 (58866) Diagnoses Carpal tunnel syndrome of right wrist G56.01 Carpal tunnel syndrome of left wrist G56.02
[2023-11-30 08:55] VITALS: BMI 35.7
== END 2023-11-30 09:12 | disposition home or self-care (01) ==
PROVIDERS: PCP Internal Medicine; Visit Provider Orthopaedic Surgery
DX: G56.03 Carpal tunnel syndrome, bilateral upper limbs (principal)
CPT/HCPCS: 99204

== ENCOUNTER → 2023-11-30 08:43 | Outpatient (BNVA) | payer OTHER, SELFPAY | PROVIDERS: PCP Internal Medicine; Visit Provider Orthopaedic Surgery ==

== ENCOUNTER 2024-02-07 10:30 | Day surgery (SDC) | payer OTHER, SELFPAY ==
--- NOTE | 2024-02-07 08:05 | W.PM.OPN ---
Operative Note Operative Note Date of Service: 02/07/24 Narrative: Preop diagnosis: 1. Right Carpal tunnel syndrome Postop diagnosis: same Procedure: 1. Right Carpal tunnel release Surgeon: Wen Lozoya MD Anesthesia: local block using 1% lidocaine with epinephrine Findings: Thickened transverse carpal ligament. EBL: Less than 5 mL Specimens: None Complications: None Disposition: Brought to recovery room in stable condition Plan: Follow-up for 10-14 days for wound check and suture removal Indications: The patient is 53 years old, with right carpal tunnel syndrome that has been unresponsive to nonoperative management. The risks and benefits of operative treatment including but not limited to risk of damage to blood vessels, nerves, tendons, infection, persistent pain, persistent symptoms, or possible need for additional surgery were discussed with the patient and the patient wishes to proceed with surgery. Procedure: Once consent was obtained a local block was performed using a combination of 1% lidocaine with epinephrine. The patient was then brought back to the operating suite and placed on the operative table in supine position. The right upper extremity was prepped and draped in a standard surgical fashion. Once assured that we had a good block, a 2.0 cm longitudinal incision was made centered over the carpal tunnel. The incision was made through the skin to the subcutaneous tissues using a #15 blade. Dissection was made down to the level of the transverse carpal ligament with care being taken to protect the palmar cutaneous nerve. Once the transverse carpal ligament was clearly visualized, a longitudinal incision was made in the transverse carpal ligament 1st using a #15 blade, then using tenotomy scissors under direct visualization. Care was taken to look for and protect the motor branch of the median nerve when seen in this area. Once satisfied with our carpal tunnel release the wound was copiously irrigated with normal saline and hemostasis was obtained with a brief period of local pressure. The skin edges were reapproximated with some 5.0 nylon suture material and a sterile dressing was applied. The patient appears to have tolerated the procedure well and with no complications. All digits were well vascularized at the conclusion of the case.
[2024-02-07 11:43] VITALS: BP 145/84; PULSE 76; RESP 16; TEMP 36.2; O2SAT 97; BMI 35.7
--- NOTE | 2024-02-07 13:14 | MHC.SHP ---
Pre-Procedural Eval Section A - 24 Hr Update-Section A only Date of Service: 02/07/24 The patient is an INPATIENT: No Changes since office visit: No Cold of Flu in the past 2 weeks, No New Medical Problems, No Changes in Medication and No Patient answered all questions The patient has been examined within 24 hours of the surgical procedure. The History & Physical has been completed within 30 days and I have reviewed it.: Yes Section B - Complete if H&P > 30 days Chief Complaint: Carpal tunnel syndrome, right upper limb Allergies: Allergies Allergy/AdvReac Type Severity Reaction Status Date / Time No Known Allergies Allergy Verified 10/20/21 15:27 [No Known Allergies*] Exam Exam Comment: Right carpal tunnel syndrome Plan Diagnosis/Plan: Unchanged I have reviewed the history and physical and performed a pertinent physical examination on my patient. No changes have occurred unless specified. Time Spent With Patient Time: Total time managing care of this patient today ____ minutes.
[2024-02-07 14:57] VITALS: BP 135/77; PULSE 84; RESP 16; O2SAT 97
== END 2024-02-07 14:58 | disposition home or self-care (01) ==
PROVIDERS: PCP Internal Medicine; Visit Provider Orthopaedic Surgery
PROC: (CPT 64721; principal; 2024-02-07 13:50)
DX: G56.01 Carpal tunnel syndrome, right upper limb (principal); G47.33 Obstructive sleep apnea (adult) (pediatric); Z99.89 Dependence on other enabling machines and devices
CPT/HCPCS: 64721; J0171

== ENCOUNTER → 2024-02-07 10:30 | Outpatient (BNV) | payer OTHER, SELFPAY | PROVIDERS: PCP Internal Medicine; Visit Provider Orthopaedic Surgery | DX: G56.01 Carpal tunnel syndrome, right upper limb (principal) | CPT/HCPCS: 64721 ==

== ENCOUNTER 2024-02-22 13:38 | Outpatient (AMB) | payer OTHER, SELFPAY ==
--- NOTE | 2024-02-22 13:48 | MHC.OFFVIS ---
Vital Signs 02/22/24 13:53 Height 5 ft 8 in Weight 235 lb BMI 35.7 Handedness Right Intake Visit Reasons: PO RT CTR 02/07/24 AR Intake Note: Milan is a 53 yo right hand dominant male who presents today for post op evaluation s/p right CTR done 02/07/[address] Lozoya. Patient reports occasional mild pain. He expresses he is still having some tingling in the thumb. Sutures removed in office today and steri strips applied. Allergies No Known Allergies [No Known Allergies*] Allergy (Verified 02/22/24 13:52) HPI HPI PO RT CTR 02/07/24 AR: Details: Milan is a 53 year old right hand dominant Chinese speaking man who returns S/P right carpal tunnel release, DOS: 02/07/24 He says he is doing well and his numbness has improved. He still has some numbness to the tip of his thumb, but had good improvement in sensation to the other digits. He has difficulty with stiffness in his fingers. In regards to the left hand, he complains of numbness primarily in the thumb, index, middle fingers of his left hand. He says he has some pain at night that accompanies the tingling, primarily at the base of his thumbs bilaterally. 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 Sutures removed and Steri-Strips applied Initially he would only bring his fingertips to ~6-7cm from his palm He had some apprehension about bring his fingers to a fist because he felt discomfort in his volar distal forearm. After working on ROM exercises in clinic, he could bring his fingertips down to touch his palm, and back into full extension, and with less discomfort. While doing this, we noticed he had triggering of both his right middle & ring fingers Sensation is normal to the index & middle fingers, with some residual numbness to the tip of the thumb Cap refill is brisk Nerve Conduction Study: IMPRESSION: 1. This is an abnormal study. 2. There is electrodiagnostic evidence for bilateral moderate-severe median neuropathy at the wrist, consistent with carpal tunnel syndrome. Right worse than left. 3. There is no electrodiagnostic evidence for ulnar neuropathy, brachial plexopathy, or cervical radiculopathy. Leah Acharya MD, SADIA 08/26/23 Psych Appearance: grossly normal Affect: normal affect Attitude: cooperative Assessment & Plan Assessment & Plan (1) Carpal tunnel syndrome of right wrist: Code(s): G56.01 - Carpal tunnel syndrome, right upper limb Category: Medical (2) Carpal tunnel syndrome of left wrist: Code(s): G56.02 - Carpal tunnel syndrome, left upper limb Category: Medical (3) Trigger finger, right middle finger: Code(s): M65.331 - Trigger finger, right middle finger Category: Medical (4) Trigger finger, right ring finger: Code(s): M65.341 - Trigger finger, right ring finger Category: Medical Plan Assessment & Plan: 1. Right carpal tunnel syndrome, S/P release DOS: 02/06/23 Pre-operative symptoms intermittent, but daily, worse at night Now with normal sensation to the index & middle fingers, with some residual numbness to the tip of the thumb 2. Right middle finger trigger finger 3. Right ring finger trigger finger The patient appears to be doing well post-operatively I educated him about the post-operative course I discussed activity modifications, he is to lift nothing heavier than a cellphone for the next two weeks He will perform gentle ROM exercises at home. i explained the importance of improving his stiffness with ROM exercises. He should avoid any underwater activities for the next 5 days He should gently massage about the incision site to reduce the risk of hypersensitivity He was given a note for work to remain out of work for the next 4 weeks He will follow up in 3-4 weeks for a ROM check and to discuss his trigger fingers. We may consider steroid injections at his next appointment 4. Right hand stiffness We worked on range of motion exercises today in clinic. I educated him about the importance of working on active and passive range of motion exercises. I am ordering OT for early intervention. 5. . Left carpal tunnel syndrome, moderate-severe Symptoms intermittent, but daily, worse at night I educated him about this condition I discussed operative and non-operative treatment options The patient would like to proceed with surgery, however we will delay until he has improved his post-operative stiffness & ROM in his right hand He will follow up prn to discuss treatment options Scribed for Wen Lozoya MD by Allan Edwards, medical technologist generalist, on 02/22/24 at 2:20 PM, EST. Scribe Plan - Not visible on output: Scribed for Wen Lozoya MD by Allan Edwards medical technologist generalist, on [ ] at [ ], EST. Coding Level of Care Code Global (78347) Diagnoses Carpal tunnel syndrome of right wrist G56.01 Carpal tunnel syndrome of left wrist G56.02 Trigger finger, right middle finger M65.331 Trigger finger, right ring finger M65.341
[2024-02-22 13:53] VITALS: BMI 35.7
== END 2024-02-22 14:47 | disposition home or self-care (01) ==
PROVIDERS: PCP Internal Medicine; Visit Provider Orthopaedic Surgery
DX: G56.03 Carpal tunnel syndrome, bilateral upper limbs (principal); M65.331 Trigger finger, right middle finger; M65.341 Trigger finger, right ring finger
CPT/HCPCS: 99024

== ENCOUNTER → 2024-02-22 13:38 | Outpatient (BNVA) | payer OTHER, SELFPAY | PROVIDERS: PCP Internal Medicine; Visit Provider Orthopaedic Surgery ==

== ENCOUNTER 2024-03-14 09:45 | Outpatient (AMB) | payer OTHER, SELFPAY ==
[2024-03-14 09:49] VITALS: BMI 35.7
--- NOTE | 2024-03-14 09:49 | A.OFFVIS_ITS ---
Vital Signs 03/14/24 09:49 Height 5 ft 8 in Weight 235 lb BMI 35.7 Intake Visit Reasons: PO RT CTR 3 wk f/u 02/07/24 AR Intake Note: Milan is a 53 yr old male who presents today for a PO RT CTR. Pt reports that he can now fully close his hand but if he closes it with too much pressure he feels a pain in the tip of his ring finger. He says when it gets warm out, his e ntire hand feels tight and stiff. Allergies No Known Allergies [No Known Allergies*] Allergy (Verified 03/14/24 09:50) HPI HPI PO RT CTR 3 wk f/u 02/07/24 AR: Details: Patient is a 53-year-old male who presents for [id number] check after right carpal tunnel release, DOS 02/07/2024. Patient reports that he is feeling much better at this time, and that OT has helped his stiffness tremendously. Patient is able to make a closed fist without difficulty at this time, however he feels that his bander and cellophaner machine strength still needs to improve. He reports that he has normal sensation at this time in the median nerve distribution of the right hand. The patient reports that he feels the warm weather has helped with the stiffness, as he felt that his hand pain and stiffness were worse when it was cold prior to surgery. Patient also states that his right middle and ring finger trigger fingers have improved drastically since last visit, and he only notices the ring finger catching when he has a prolonged tight bander and cellophaner machine, with no noticeable catching of the middle finger in this time period. The patient states that he knows he will probably have to have carpal tunnel release on his left side, but would like to wait until he feels that his right hand has healed completely. 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 Neuro: Median, ulnar, radial nerves motor and sensory intact and sensation is normal to the tips of all digits. Vascular: Cap refill brisk Pain: Patient reports no tenderness to palpation around the right hand or wrist at this time ROM: Patient is able to make a full closed fist without difficulty No visible or palpable locking or catching of the right middle or ring fingers Finger cross Skin: Well-healed incision on the right volar wrist previous carpal tunnel release General: No ecchymosis, erythema, or evidence of infection. Psych: Appears grossly normal Affect normal Attitude cooperative Assessment & Plan Assessment & Plan (1) Trigger finger, right ring finger: Code(s): M65.341 - Trigger finger, right ring finger Category: Medical (2) Trigger finger, right middle finger: Code(s): M65.331 - Trigger finger, right middle finger Category: Medical (3) Carpal tunnel syndrome of left wrist: Code(s): G56.02 - Carpal tunnel syndrome, left upper limb Category: Medical (4) Carpal tunnel syndrome of right wrist: Code(s): G56.01 - Carpal tunnel syndrome, right upper limb Category: Medical Plan 1. 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 Trigger finger, right middle finger 3. Trigger finger, right ring finger Patient reports that symptoms have improved greatly since last visit Only reports very occasional locking of the right ring finger, with no notice able locking of the right middle finger at this time Patient does not feel that he wants any further treatment at this time, as symptoms have improved Patient will follow-up in 4 weeks for left carpal tunnel syndrome, and we can discuss if he feels treatment is necessary for his trigger fingers at that time 4. Carpal tunnel syndrome, left Symptoms intermittent, but daily Patient would like to wait to pursue surgical treatment of left carpal tunnel until he feels his right hand is fully healed Patient is advised that waiting until experiencing dense numbness increases his risk of not getting normal sensation back, as well as risking APB wasting Patient understands these risks, and states that he would like to come back in 4 weeks to discuss operative treatment of his left carpal tunnel syndrome Patient will follow-up in 4 weeks To discuss surgical treatment of his left carpal tunnel syndrome, sooner with any acute concerns Coding Level of Care Code Global (56328) Diagnoses Trigger finger, right ring finger M65.341 Trigger finger, right middle finger M65.331 Carpal tunnel syndrome of left wrist G56.02 Carpal tunnel syndrome of right wrist G56.01
== END 2024-03-14 10:13 | disposition home or self-care (01) ==
PROVIDERS: PCP Internal Medicine
DX: G56.03 Carpal tunnel syndrome, bilateral upper limbs (principal); M65.341 Trigger finger, right ring finger; M65.331 Trigger finger, right middle finger
CPT/HCPCS: 99024

== ENCOUNTER → 2024-03-14 09:45 | Outpatient (BNVA) | payer OTHER, SELFPAY | PROVIDERS: PCP Internal Medicine ==

== ENCOUNTER 2024-03-27 09:00 | Outpatient (RCR) | payer OTHER, SELFPAY ==
--- NOTE | 2024-03-01 10:48 | MHC.OT.EP ---
[address] [phone] Occupational Therapy Plan of Care Patient Name: Milan Simons Date of Evaluation: 03/01/24 Diagnosis: Right CTR, Left CTS, Right D3-D4 Trigger Fingers Pain Location: Pain free at rest Mild pain w/ pressure or gripping (pulling through volar wrist) Pain Score: 1 Pain Scale Used: Numeric (0 - 10) Aggravating Factors: Gripping, pressure/force on palm Alleviating Factors: Massage (no longer needing pain meds or ice) Assessment: 53 yo male w/ hx of CTS, now post-op right carpal tunnel release 02/07/24. On post-op appointment, was noted to have triggering in right D3-D4 and reporting numbness/tingling in median nerve distribution of left hand. On assessment today, he reports improvements in trigger fingers. He has been doing is stretches with good improvement, now actively coming 1cm tip-palm without triggering, and after therapy session today, comes tip-palm w/ ease. Incision is healing well, some edema and dryness noted, but has been doing scar and soft tissue massage. He his very motivated and I anticipate good functional return of right hand for everyday activities and work, we will also educate on conservative treatment for left CTS. Frequency and Duration: The patient will be seen 2x/wk for 4 weeks Short Term Goals: Ind w/ scar management and edema management techniques Pt to report trigger free still w/ onset of new exercises Right wrist ext/flex to 45/40 Right AROM digits tip-palm w/ ease Instructor Adjunct Pharmacy Technician Goals: Right gross grasp >50lb Progress to hand/wrist strengthening exercises Pt to report good follow through w/ conservative treatment of L CTS (nighttime orthosis, HEP) Right wrist ext/flex 50/45 Treatment Plan: Therapeutic Exercise Therapeutic Activity Home Exercise Program Splinting Neuro Re-ed Patient Education Desensitization/Sensory Re-ed Edema Control ADL Training Ultrasound Paraffin Fluidotherapy MHP Cold Packs Joint Mobilization Soft Tissue Mobilization Kinesiotaping Electronically Signed By: Shila Bellamy OTR/L Please Sign and return to therapist. Thank you once again for your referral.
--- NOTE | 2024-03-27 09:39 | MHC.OT.DC ---
[address] [phone] F: [phone] Occupational Therapy Discharge Note Patient Name: Milan Simons Provider: Dr Wen Lozoya Diagnosis: Right CTR, Left CTS, Right D3-D4 Trigger Fingers Date of Surgery: 02/07/24 Date of Evaluation: 03/01/24 Date of Discharge: 03/27/24 Treatments to Date: 6 Discharge Status: Improved Function Independent with HEP Discharge Summary: Milan is about 6 weeks post-op R CTR and doing well. He is pain free at rest and progressing well w/ strengthening and return to work, mild pain w/ heavy gripping/use of right hand w/ work tasks. Still w/ left CTS, recommend trialing nighttime orthosis but has follow up w/ surgeon regarding L CTR. Ind w/ HEP, still w/ tight wrist ROM, but good understanding of stretches and strengthening, I anticipate he will continue to do well. Electronically Signed By: Shila Bellamy OTR/Brenda CHT Reviewed/agree with student documentation: Therapist: Please Sign and return to therapist, thank you for your referral.
== END 2024-03-27 09:43 | disposition home or self-care (01) ==
LOC: HO.OT 09:00
PROVIDERS: PCP Internal Medicine; Visit Provider Orthopaedic Surgery
DX: M65.341 Trigger finger, right ring finger (principal); M65.331 Trigger finger, right middle finger; G56.01 Carpal tunnel syndrome, right upper limb
CPT/HCPCS: 97110; 97140; 97165

== ENCOUNTER 2024-09-18 09:48 | Outpatient (REF) | payer OTHER, SELFPAY ==
[2024-09-18 13:59] LABS: MANUAL DIFF FLAG NO
[2024-09-18 14:04] LABS: Basophils Absolute Auto 0.1 X10*3/uL (0.0-0.2); Basophils Percent Auto 0.8 % (0-2); Eosinophils Absolute Auto 0.4 X10*3/uL (0.0-0.4); Eosinophils Percent Auto 5.3 % (0-4); Hemoglobin 14.6 g/dl (14.0-18.0); Imm Gran Abs Auto 0.02 X10*3/uL (0.00-0.03); Imm Gran Pct Auto 0.3 % (0.0-0.4); Lymphocytes Absolute Auto 2.3 X10*3/uL (1.2-4.9); Lymphocytes Percent Auto 30.4 % (20-40); Mean Corpuscular HGB Conc 32.4 g/dl (31.0-36.0); Mean Corpuscular Hemoglobin 26.7 pg (27.0-33.0); Mean Corpuscular Volume 82.4 fL (80.0-98.0); Monocytes Absolute Auto 0.7 X10*3/uL (0.1-1.2); Monocytes Percent Auto 9.5 % (2-11); Neutrophils Percent Auto 53.7 % (45-73); Platelet Count 240 X10*3/uL (160-400); Red Blood Count 5.46 X10*6/uL (4.60-5.80); Red Cell Distribution Width 14.6 % (11.0-16.0); White Blood Count 7.5 X10*3/uL (4.8-10.8)
[2024-09-18 14:29] LABS: Alanine Aminotransferase 33 U/L (0-40); Albumin Level 4.1 g/dL (3.5-5.0); Alkaline Phosphatase 88 U/L (39-117); Anion Gap 10 (12-20); Aspartate Amino Transferase 30 U/L (5-37); Bilirubin Total 0.6 mg/dL (0.0-1.0); Blood Urea Nitrogen 15 mg/dL (9-16); Carbon Dioxide 27 mmol/L (22-29); Chloride 108 mmol/L (96-108); Cholesterol 211 mg/dL (<200); Estimated Glomerular Filt Rate > 60; Glucose Random 91 mg/dL (60-115); HDL Cholesterol 54 mg/dL (>40); LDL Cholesterol Calculated 137 mg/dL (<100); Potassium 4.4 mmol/L (3.3-5.1); Sodium 141 mmol/L (135-145); Total Protein 7.4 g/dL (6.5-8.0); Triglycerides 101 mg/dL (<150)
[2024-09-18 14:30] LABS: Estimated Average Glucose 134 mg/dL; Hemoglobin A1C 165.3315 umol/L; Hemoglobin A1c % 6.3 % (<6.0); Total Hemoglobin (HGBA1C) 3678.9383 umol/L
[2024-09-18 14:47] LABS: TSH reflex Free T4 4.07 uIU/mL (0.32-4.0)
[2024-09-18 21:17] LABS: Free T4 (Free Thyroxine) 0.93 ng/dL (0.71-1.85)
[2024-09-19 04:51] LABS: HIV AB/AG Nonreactive (Nonreactive); HIV Num 1 0.05 S/CO (0.00-0.99)
== END 2024-09-18 09:49 | disposition home or self-care (01) ==
LOC: HO.CHCLDS 09:48
PROVIDERS: Visit Provider Internal Medicine
DX: E66.9 Obesity, unspecified (principal); Z13.1 Encounter for screening for diabetes mellitus; Z13.29 Encounter for screening for other suspected endocrine disorder
CPT/HCPCS: 36415; 80053; 80061; 83036; 84439; 84443; 85025; 87389